=== PATIENT | female | born 2000 | race Caucasian/White ===

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

== ENCOUNTER 2022-05-12 15:43 | Emergency (ER) | payer OTHER ==
[2022-05-12 16:39] VITALS: RESP 16
--- NOTE | 2022-05-12 17:24 | XR ---
EXAMINATION TYPE: XR hand complete LT DATE OF EXAM: 05/12/2022 COMPARISON: NONE HISTORY: Wrist pain TECHNIQUE: 3 view FINDINGS: Metacarpals are intact. I see no fracture nor dislocation. Joint spaces are normal. Carpal bones are intact. IMPRESSION: No acute abnormality of the left hand.
--- NOTE | 2022-05-12 17:28 | XR ---
EXAMINATION TYPE: XR wrist complete LT DATE OF EXAM: 05/12/2022 COMPARISON: 06/26/2019 HISTORY: Pain TECHNIQUE: 4 views FINDINGS: Carpal bones are intact. I see no fracture nor dislocation. Joint spaces are normal. IMPRESSION: Negative left wrist exam. No change.
--- NOTE | 2022-05-12 19:41 | ED ---
General Adult HPI - General Chief complaint: Extremity Injury, Upper Stated complaint: lt wrist swollen/sores on chest Time Seen by Provider: 05/12/22 19:20 Source: patient Mode of arrival: ambulatory Limitations: no limitations - History of Present Illness Initial comments: Dictation was produced using [employer] dictation software. please excuse any grammatical, word or spelling errors. Chief Complaint: 22-year-old female presents with left breast rash and left wrist pain History of Present Illness: Patient is a 22-year-old female presents emergency department for left breast rash and left wrist pain. Patient states that she hurt her left wrist at work after a large object dropped on it. Patient also complaining of rash to the left breast. Patient states she completed a course of Augmentin however feels like her rash is not really improving. The ROS documented in this emergency department record has been reviewed and c onfirmed by me. Those systems with pertinent positive or negative responses have been documented in the HPI. All other systems are other negative and/or noncontributory. PHYSICAL EXAM: General Impression: Alert and oriented x3, not in acute distress HEENT: Normocephalic atraumatic, extra-ocular movements intact, pupils equal and reactive to light bilaterally, mucous membranes moist. Cardiovascular: Heart regular rate and rhythm Chest: Able to complete full sentences, no retractions, no tachypnea Abdomen: abdomen soft, non-tender, non-distended, no organomegaly Left upper extremity: There is palpatory tenderness to the surface of the left wrist and left hand without any appreciable swelling Musculoskeletal: Pulses present and equal in all extremities, no peripheral edema Motor: no focal deficits noted Neurological: CN II-XII grossly intact, no focal motor or sensory deficits noted Skin: Left breast there are 3 areas of dry scabs, no surrounding erythema, no drainage Psych: Normal affect and mood ED course: 22 y old female presents to the emergency department for rash and left breasts and left wrist pain. She suffered a contusion to the left wrist. X-rays of left wrist and hand are unremarkable. Left rash is dry and clean. Patient be trialed on a short course of Keflex antibiotics. - Related Data Previous Rx's Medication Instructions Recorded Ibuprofen [Motrin] 600 mg PO Q8HR PRN 7 Days #21 tab 03/08/18 Cephalexin [Keflex] 500 mg PO Q6HR 5 Days #20 cap 10/28/22 Allergies Allergy/AdvReac Type Severity Reaction Status Date / Time quetiapine [From Seroquel] Allergy Unknown Verified 05/12/22 16:39 Childhood Review of Systems ROS Statement: Those systems with pertinent positive or pertinent negative responses have been documented in the HPI. ROS Other: All systems not noted in ROS Statement are negative. Past Medical History Additional Past Medical History / Comment(s): hypoglycemic History of Any Multi-Drug Resistant Organisms: None Reported Past Surgical History: Ear Surgery Additional Past Surgical History / Comment(s): eye surgery Past Psychological History: ADD/ADHD, Bipolar Smoking Status: Never smoker Past Alcohol Use History: None Reported Past Drug Use History: None Reported General Exam Limitations: no limitations Course Vital Signs 05/12/22 16:35 Temperature 98 F Pulse Rate 78 Respiratory 16 Rate Blood Pressure 136/91 O2 Sat by Pulse 99 Oximetry Disposition Clinical Impression: Wrist contusion Disposition: HOME SELF-CARE Condition: Good Instructions (If sedation given, give patient instructions): Wrist Injury (ED), Acute Rash (ED) Prescriptions: Cephalexin [Keflex] 500 mg PO Q6HR 5 Days #20 cap Is patient prescribed a controlled substance at d/c from ED?: No Referrals: Katherine Hess MD [Primary Care Provider] - 1-2 days
[2022-05-12 20:01] VITALS: BP 130/79; PULSE 79; TEMP 98.9
== END 2022-05-12 20:01 | disposition home or self-care (01) ==
LOC: SUPCPDRO 15:43 → EC 15:43
DX: S60.212A Contusion of left wrist, initial encounter (principal); R21 Rash and other nonspecific skin eruption; F31.9 Bipolar disorder, unspecified; Z88.8 Allergy status to other drugs, medicaments and biological substances; Z79.899 Other long term (current) drug therapy
CPT/HCPCS: 99283

== ENCOUNTER 2022-06-26 16:07 | Inpatient (IN) | payer MEDICAID, OTHER ==
--- NOTE | 2022-06-26 20:02 | ED ---
Psych HPI - General Chief Complaint: Psychiatric Symptoms Stated Complaint: mental health Time Seen by Provider: 06/26/22 19:53 Source: patient Mode of arrival: ambulatory - History of Present Illness Initial Comments: Patient presents with psychiatric disorder. She was sent to the hospital by her psychiatrist. She has been having increasing frequency of hallucinations. She has had increased threatening self-harm behavior as well. Today she has not tried to harm herself. She has not overdosed on anything. She is not complaining of anything. - Related Data Previous Rx's Medication Instructions Recorded Ibuprofen [Motrin] 600 mg PO Q8HR PRN 7 Days #21 tab 03/08/18 Cephalexin [Keflex] 500 mg PO Q6HR 5 Days #20 cap 05/12/22 Allergies Allergy/AdvReac Type Severity Reaction Status Date / Time quetiapine [From Seroquel] Allergy Unknown Verified 06/26/22 16:11 Childhood Review of Systems ROS Statement: Those systems with pertinent positive or pertinent negative responses have been documented in the HPI. ROS Other: All systems not noted in ROS Statement are negative. Past Medical History Additional Past Medical History / Comment(s): hypoglycemic History of Any Multi-Drug Resistant Organisms: None Reported Past Surgical History: Ear Surgery, Orthopedic Surgery Additional Past Surgical History / Comment(s): eye surgery, foot surgery Past Psychological History: ADD/ADHD, Bipolar, PTSD Smoking Status: Never smoker Past Alcohol Use History: None Reported Past Drug Use History: None Reported General Exam Limitations: no limitations General appearance: alert, in no apparent distress Head exam: Present: atraumatic, normocephalic, normal inspection Eye exam: Present: normal appearance, PERRL, EOMI. Absent: scleral icterus, conjunctival injection, periorbital swelling ENT exam: Present: normal exam, mucous membranes moist Neck exam: Present: normal inspection. Absent: tenderness, meningismus, lymphadenopathy Respiratory exam: Present: normal lung sounds bilaterally. Absent: respiratory distress, wheezes, rales, rhonchi, stridor Cardiovascular Exam: Present: regular rate, normal rhythm, normal heart sounds. Absent: systolic murmur, diastolic murmur, rubs, gallop, clicks GI/Abdominal exam: Present: soft, normal bowel sounds. Absent: distended, tenderness, guarding, rebound, rigid Extremities exam: Present: normal inspection, full ROM, normal capillary refill. Absent: tenderness, pedal edema, joint swelling, calf tenderness Back exam: Present: normal inspection Neurological exam: Present: alert, oriented X3, CN II-XII intact Psychiatric exam: Present: normal affect, normal mood Skin exam: Present: warm, dry, intact, normal color. Absent: rash Course Vital Signs 06/26/22 16:08 Temperature 97.9 F Pulse Rate 114 H Respiratory 18 Rate Blood Pressure 121/82 O2 Sat by Pulse 99 Oximetry Medical Decision Making - Medical Decision Making patient presents for psychiatric evaluation. She is medically clear. She will require psychiatric evaluation. Disposition Clinical Impression: Acute psychosis Disposition: TRANSFER TO PSYCH HOSP/UNIT Condition: Fair Is patient prescribed a controlled substance at d/c from ED?: No Referrals: None,Stated [Primary Care Provider] - 1-2 days
[2022-06-26 21:11] LABS: Amphetamine Screen,Urine Not Detected (NotDetected); Barbiturate Screen,Urine Not Detected (NotDetected); Benzodiazepines Screen,Urine Not Detected (NotDetected); Cocaine Screen,Urine Not Detected (NotDetected); Methadone Screen, Urine Not Detected (NotDetected); Opiate Screen,Urine Not Detected (NotDetected); Oxycodone Screen, Urine Not Detected (NotDetected); Phencyclidine Screen,Urine Not Detected (NotDetected); Tricyclic Antidepressant,Urine Not Detected (NotDetected); Urn Cannabinoid Scrn Not Detected (NotDetected)
[2022-06-26] MEDS ORDERED: MAG HYDROX/AL HYDROX/SIMETH 355 ML BOTTLE PO PRN (23:19)
[2022-06-26] MEDS ORDERED: LORazepam 1 MG TAB PO PRN (23:19)
[2022-06-26] MEDS ORDERED: MAGNESIUM HYDROXIDE 2,400 MG/10 ML CUP PO PRN (23:19)
[2022-06-26] MEDS ORDERED: LORazepam 2 MG/ML INJ IM PRN (23:22)
[2022-06-26 23:56] LABS: Appearance,Urine Turbid (Clear); Bacteria,Urine Moderate /hpf; Bilirubin,Urine Negative (Negative); Blood,Urine Negative (Negative); Color,Urine Yellow; Glucose,Urine (UA) Negative (Negative); Ketones,Urine Negative (Negative); Leukocyte Esterase,Urine Large (Negative); Mucus,Urine Moderate /hpf; Nitrite,Urine Negative (Negative); Protein,Urine 1+ (Negative); RBC,Urine 1 /hpf (0-5); Specific Gravity,Urine 1.031 (1.001-1.035); Squamous Epithelial Cell,Urine 57 /hpf (0-4); Transitional Epi Cells,Urine 1 /hpf (0-1); WBC,Urine 137 /hpf (0-5)
[2022-06-27] MEDS: ACETAMINOPHEN TAB 325 MG TAB PO PRN (00:11)
[2022-06-27 07:45] LABS: Basophils % (A) 0 %; Eosinophils # (A) 0.3 k/uL (0-0.7); Eosinophils % (A) 3 %; HCT 43.7 % (34.0-46.0); HGB 15.3 gm/dL (11.4-16.0); Lymphocytes # (A) 2.8 k/uL (1.0-4.8); Lymphocytes % (A) 31 %; MCH 32.6 pg (25.0-35.0); MCHC 34.9 g/dL (31.0-37.0); MCV 93.4 fL (80.0-100.0); Mean Platelet Volume 7.9; Monocytes % (A) 11 %; Neutrophils # (A) 4.7 k/uL (1.3-7.7); Neutrophils % (A) 53 %; Platelet Count 206 k/uL (150-450); RBC 4.68 m/uL (3.80-5.40)
[2022-06-27 08:04] LABS: ALT 31 U/L (4-34); AST 31 U/L (14-36); African American GFR (CKD) >90 (>60 ml/min/1.73 sqM); Albumin 4.2 g/dL (3.5-5.0); Alkaline Phosphatase 80 U/L (38-126); Anion Gap 11 mmol/L; Blood Urea Nitrogen 8 mg/dL (7-17); Calcium 8.8 mg/dL (8.4-10.2); Carbon Dioxide 23 mmol/L (22-30); Chloride 109 mmol/L (98-107); Glucose 92 mg/dL (74-99); Non-African American GFR(CKD) >90 (>60 ml/min/1.73 sqM); Sodium 143 mmol/L (137-145); Total Bilirubin 0.6 mg/dL (0.2-1.3); Total Protein 6.8 g/dL (6.3-8.2)
[2022-06-27] MEDS: DIVALPROEX 500 MG TABLET.DR PO SCH ×4 (08:35→20:15)
--- NOTE | 2022-06-27 14:06 | P.HP ---
Psychiatric H&P - . H&P Date: 06/27/22 History & Physical: Allergies Allergy/AdvReac Type Severity Reaction Status Date / Time quetiapine From Seroquel Allergy Unknown Verified 06/26/22 16:11 Childhood Vital Signs Temp 98.2 F 06/27/22 00:10 Pulse 110 H 06/27/22 00:10 Resp 17 06/27/22 00:10 BP 140/72 06/27/22 00:10 Pulse Ox 97 06/27/22 00:10 FiO2 Intake & Output 06/26/22 06/27/22 06/27/22 18:59 06:59 18:59 Weight 112.037 kg 110.28 kg Laboratory Last Values WBC 9.0 k/uL (4.0-11.0) 06/27/22 06:56 RBC 4.68 m/uL (3.80-5.40) 06/27/22 06:56 Hgb 15.3 gm/dL (11.4-16.0) 06/27/22 06:56 Hct 43.7 % (34.0-46.0) 06/27/22 06:56 MCV 93.4 fL (80.0-100.0) 06/27/22 06:56 MCH 32.6 pg (25.0-35.0) 06/27/22 06:56 MCHC 34.9 g/dL (31.0-37.0) 06/27/22 06:56 RDW 12.0 % (11.5-15.5) 06/27/22 06:56 Plt Count 206 k/uL (150-450) 06/27/22 06:56 MPV 7.9 06/27/22 06:56 Neutrophils % 53 % 06/27/22 06:56 Lymphocytes % 31 % 06/27/22 06:56 Monocytes % 11 % 06/27/22 06:56 Eosinophils % 3 % 06/27/22 06:56 Basophils % 0 % 06/27/22 06:56 Neutrophils # 4.7 k/uL (1.3-7.7) 06/27/22 06:56 Lymphocytes # 2.8 k/uL (1.0-4.8) 06/27/22 06:56 Monocytes # 1.0 k/uL (0-1.0) 06/27/22 06:56 Eosinophils # 0.3 k/uL (0-0.7) 06/27/22 06:56 Basophils # 0.0 k/uL (0-0.2) 06/27/22 06:56 Sodium 143 mmol/L (137-145) 06/27/22 06:56 Potassium 4.0 mmol/L (3.5-5.1) 06/27/22 06:56 Chloride 109 mmol/L (98-107) H 06/27/22 06:56 Carbon Dioxide 23 mmol/L (22-30) 06/27/22 06:56 Anion Gap 11 mmol/L 06/27/22 06:56 BUN 8 mg/dL (7-17) 06/27/22 06:56 Creatinine 0.64 mg/dL (0.52-1.04) 06/27/22 06:56 Est GFR (CKD-EPI)AfAm >90 (>60 ml/min/1.73 sqM) 06/27/22 06:56 Est GFR (CKD-EPI)NonAf >90 (>60 ml/min/1.73 sqM) 06/27/22 06:56 Glucose 92 mg/dL (74-99) 06/27/22 06:56 Calcium 8.8 mg/dL (8.4-10.2) 06/27/22 06:56 Total Bilirubin 0.6 mg/dL (0.2-1.3) 06/27/22 06:56 AST 31 U/L (14-36) 06/27/22 06:56 ALT 31 U/L (4-34) 06/27/22 06:56 Alkaline Phosphatase 80 U/L (38-126) 06/27/22 06:56 Total Protein 6.8 g/dL (6.3-8.2) 06/27/22 06:56 Albumin 4.2 g/dL (3.5-5.0) 06/27/22 06:56 TSH 6.350 mIU/L (0.465-4.680) H 06/27/22 06:56 Urine Color Yellow 06/26/22 20:32 Urine Appearance Turbid (Clear) H 06/26/22 20:32 Urine pH 6.0 (5.0-8.0) 06/26/22 20:[address] 1.031 (1.001-1.035) 06/26/22 20:32 Urine Protein 1+ (Negative) H 06/26/22 20:32 Urine Glucose (UA) Negative (Negative) 06/26/22 20:32 Urine Ketones Negative (Negative) 06/26/22 20:32 Urine Blood Negative (Negative) 06/26/22 20:32 Urine Nitrite Negative (Negative) 06/26/22 20:32 Urine Bilirubin Negative (Negative) 06/26/22 20:32 Urine Urobilinogen 4.0 mg/dL (<2.0) 06/26/22 20:32 Ur Leukocyte Esterase Large (Negative) H 06/26/22 20:32 Urine RBC 1 /hpf (0-5) 06/26/22 20:32 Urine WBC 137 /hpf (0-5) H 06/26/22 20:32 Ur Squamous Epith Cells 57 /hpf (0-4) H 06/26/22 20:32 Ur Transition Epith Cell 1 /hpf (0-1) 06/26/22 20:32 Urine Bacteria Moderate /hpf (None) H 06/26/22 20:32 Urine Mucus Moderate /hpf (None) H 06/26/22 20:32 Urine HCG, Qual Not Detected (Not Detectd) 06/26/22 20:32 Urine Opiates Screen Not Detected (NotDetected) 06/26/22 20:32 Ur Oxycodone Screen Not Detected (NotDetected) 06/26/22 20:32 Urine Methadone Screen Not Detected (NotDetected) 06/26/22 20:32 Ur Propoxyphene Screen Not Detected (NotDetected) 06/26/22 20:32 Ur Barbiturates Screen Not Detected (NotDetected) 06/26/22 20:32 U Tricyclic Antidepress Not Detected (NotDetected) 06/26/22 20:32 Ur Phencyclidine Scrn Not Detected (NotDetected) 06/26/22 20:32 Ur Amphetamines Screen Not Detected (NotDetected) 06/26/22 20:32 U Methamphetamines Scrn Not Detected (NotDetected) 06/26/22 20:32 U Benzodiazepines Scrn Not Detected (NotDetected) 06/26/22 20:32 Urine Cocaine Screen Not Detected (NotDetected) 06/26/22 20:32 U Marijuana (THC) Screen Not Detected (NotDetected) 06/26/22 20:32 Serum Alcohol <10 mg/dL 06/26/22 20:44 Coronavirus (PCR) Not Detected (Not Detectd) 06/26/22 22:37 06/27/22 13:51 IDENTIFYING DATA: Patient is a 22 yo female , mother is her willy, lives with her mother and grandfather, collects SS. HPI: Patient presented to the hospital yesterday due to increasing hallucinations as advised by her outpatient psychiatrist. Patient signed voluntary before coming to the MHU. She was insistent on seeing real estate underwriter today. She appears to have intellectual disability, was concrete and minimizing her symptoms, focused on discharge. Patient was preoccupied with discharge and states that "they took away my coping mechanism". She appears to have poor insight and judgment. she claims that she missed a few doses of her medications at home and states that it was due to "my hand eye coordination". She states that the doctor wanted her to have her "meds checked". Patient was rationalizing why she is in the hospital and states that she also may have been "dropping my meds". She claims at home she was "banging on the table" and states that she did not harm anybody. She claims that she was hearing voices stating "I love you" and also claims that she was having visual hallucinations of a family member. She states that at this time she is not having these hallucinations. She is denying any paranoia. She claims that her appetite is fair and sleep has been fairly poor. Patient denies any suicidal or homicidal ideations intent or plan. Patient denies any flight of ideas racing thoughts and increased in goal directed behavior. Patient admits to using no recreational drugs or cigarettes. PAST PSYCHIATRIC HISTORY: Patient states that she has a history of bipolar disorder and also has a noted history of PTSD and intellectual disability. Patient is currently on Abilify, Depakote, lithium, prazosin and Zyprexa. Patient denies any previous psychiatric hospitalizations. Patient currently follows up with Dr. Solano at [facility], her last visit was on 06/26/2022. Patient denies any history of suicide attempts in the past. PMH:Additional Past Medical History / Comment(s): hypoglycemic History of Any Multi-Drug Resistant Organisms: None Reported Past Surgical History: Ear Surgery, Orthopedic Surgery Additional Past Surgical History / Comment(s): eye surgery, foot surgery Past Psychological History: ADD/ADHD, Bipolar, PTSD Smoking Status: Never smoker Past Alcohol Use History: None Reported Past Drug Use History: None Reported ALLERGIES: as per EMR CHEMICAL DEPENDENCY HISTORY: as per HPI FAMILY PSYCHIATRIC/SUBSTANCE USE HISTORY: She claims that her uncle and had bipolar disorder SOCIAL HISTORY: Patient was born and raised in [place] and also in [place]. She claims that she got to age [age] years old and was enrolled in special classes during high school. She denies any legal history. She lives at home with her mother and her grandfather, her mother is her guardian. They live in a house. She collects Social Security. MENTAL STATUS EXAM: General Appearance: Patient appears to be overweight, short hair, wearing glasses, stated age is alert, concrete, difficult to redirect. Patient appears to have poor hygiene and grooming. Behavior: Patient is seated without any agitated behavior. Tearful and argumentative. Focused on discharge. Speech: Patient's speech is fluent and nonpressured. [place] and monotone. Mood/Affect: Patient reports their mood is "okay", affect is incongruent and tearful at times. Suicidality/Homicidality: Patient denies having any homicidal ideation intent or plan. Denies any suicidal ideations intent or plan Perceptions: Patient denies any visual hallucinations and denies any auditory hallucinations Though content/process: [place], positive content. Minimizing her symptoms. Rationalizing. Focused on discharge. Memory and concentration: AOX3, grossly intact for the purposes of this session. Can spell "WORLD" backwards Judgment and insight: Limited STRENGTHS/WEAKNESSES: strength is that patient is resilient. Weakness is that patient has poor judgment and is impulsive and has been noncompliant with medications. INTELLECT: below average IMPRESSIONS: Bipolar disorder unspecified Intellectual disability PTSD PLAN: -Patient is admitted under voluntary status to MHU for stabilization of psychiatric symptoms and safety. Patient has not signed medication consent] and is placed in patient's chart. -Medications : Will start patient on her home dose of Abilify 20 mg daily for mood stabilization, Depakote 500 mg daily +1000 mg qhs for mood stabilization, lithium 600 mg daily at bedtime for mood stabilization, Zyprexa 20 mg daily at bedtime for sleep/mood stabilization/psychosis. real estate underwriter will attempt again to offer patient FUNEZ abilify to ensure compliance. -Ativan and Haldol PRN for agitation/aggression -will order lithium level tomorrow morning. -Patient was informed of the risks, benefits and side effects of the medication -Internal Medicine consult to perform medical evaluation and physical. -NRT - not needed as patient does not smoke. -SW on board for discharge planning. Encourage patient to participate in groups to work on coping skills. will get further collateral from sarahdian/mother.
[2022-06-27] MEDS: LITHIUM CARBONATE 300 MG CAP PO SCH (20:12)
[2022-06-27] MEDS: OLANZapine 10 MG TAB PO SCH (20:13)
[2022-06-27] MEDS: PRAZOSIN 1 MG CAP PO SCH (20:13)
--- NOTE | 2022-06-28 01:20 | P.MDCNMH ---
History of Present Illness H&P Date: 06/28/22 Chief Complaint: medical eval 22 year old female with developmental delays patient sent in here for psych eval and meds adjustment , due to acute psychosis , anger behavior and auditory hallucinations she currently denies any medical concerns , denies fever chills, URI , abd pain , nausea or vomiting, denies any urinary or bowel habit changes Review of Systems Pertinent positives as noted in HPI. All other systems were reviewed and are negative Past Medical History Additional Past Medical History / Comment(s): hypoglycemic History of Any Multi-Drug Resistant Organisms: None Reported Past Surgical History: Ear Surgery, Orthopedic Surgery Additional Past Surgical History / Comment(s): eye surgery, foot surgery Past Psychological History: ADD/ADHD, Bipolar, PTSD Smoking Status: Never smoker Past Alcohol Use History: None Reported Past Drug Use History: None Reported - Past Family History familyi Additional Family Medical History / Comment(s): skin cancer Medications and Allergies Home Medications Medication Instructions Recorded Confirmed Type ARIPiprazole [Abilify] 20 mg PO DAILY 06/26/22 06/26/22 History Divalproex Sodium [Depakote] 1,000 mg PO HS 06/26/22 06/26/22 History Divalproex Sodium [Depakote] 500 mg PO DAILY 06/26/22 06/26/22 History [place] Carbonate [Lithobid] 600 mg PO HS 06/26/22 06/26/22 History OLANZapine [ZyPREXA] 20 mg PO HS 06/26/22 06/26/22 History Prazosin [Minipress] 1 mg PO HS 06/26/22 06/26/22 History Allergies Allergy/AdvReac Type Severity Reaction Status Date / Time quetiapine [From Seroquel] Allergy Unknown Verified 06/26/22 16:11 Childhood Physical Exam Constitutional: No acute distress Eyes: Anicteric sclerae, moist conjunctiva, Pupils equal round reactive to light ENMT: NC/AT Oropharynx clear, no erythema, or exudates Neck: Supple, no masses, or JVD No carotid bruits No thyromegaly Lungs: Clear to auscultation Clear to percussion Normal respiratory effort, no accessory muscle use Cardiovascular: Heart regular in rate and rhythm, No murmurs, gallops, or rubs No peripheral edema Abdominal: Soft Nontender, no guarding, rebound or rigidity Abdomen moving with respiration Normoactive bowel sounds Skin: Normal temperature, tone, texture, turgor Extremities: No digital cyanosis No clubbing Pedal pulses intact and symmetrical Radial pulses intact and symmetrical No calf tenderness Psychiatric: Alert and oriented to person, place Neuro Muscles Strength 5/5 in all 4 extremities Sensation to light touch grossly present throughout Cranial Nerve Examination - Cranial Nerves Cranial Nerve II- Optic: Intact Cranial Nerve III- Oculomotor: Intact Cranial Nerve IV- Trochlear: Intact Cranial Nerve V- Trigeminal: Intact Cranial Nerve - Abducens: Intact Cranial Nerve VII- Facial: Intact Cranial Nerve VIII- Auditory: Intact Cranial Nerve IX- Glossopharyngeal: Intact Cranial Nerve X- Vagus: Intact Cranial Nerve XI- Accessory: Intact Cranial Nerve XII- Hypoglossal: Intact Results CBC & Chem 7: 06/27/22 06:56 06/27/22 06:56 Labs: Abnormal Lab Results - Last 24 Hours (Table) 06/27/22 Range/Units 06:56 Chloride 109 H (98-107) mmol/L TSH 6.350 H (0.465-4.680) mIU/L Assessment and Plan Assessment: Elevated TSH rule out hypothyroidism check free T4 acute psychosis management per psych obesity counseled regarding life style modification and weight loss thank you for your consultation , please contact [facility] when free T4 RESULTS
[2022-06-28 10:59] LABS: Lithium 0.3 mmol/L
[2022-06-28] MEDS ORDERED: ARIPiprazole IM 400 MG VIAL (NO COST) PHARMACY STOCK IM ONE (11:00)
[2022-06-28] MEDS ORDERED: ARIPiprazole IM SYRINGE 400 MG (NO CHARGE) PHARMACY STOCK IM ONE (11:00)
[2022-06-28 11:19] LABS: T4, Free (Free Thyroxine) 1.11 ng/dL (0.78-2.19)
--- NOTE | 2022-06-28 11:25 | P.PN ---
Progress Note - Text Progress Note Date: 06/28/22 Interval History: Patient was seen wandering the hallways and was directable and agreeable to sp eak with software writer in the office. Patient was fairly insistent on speaking with software writer today. She claims that she feels a bit better today with regards to her mood and was less tearful and more cooperative during the conversation. She admits to taking her medications and denies any issues with it. She states that she spoke with her mother yesterday and wants to be on the long-acting injection. We spoke of its advantages and also the risks as well and patient was agreeable to it. She states that she was able to sleep a bit better last night in the hospital. Continues to be fairly focused on discharge. She states that she is going to some groups. Claims have a fair appetite. States that she will shower today. At this time patient denies any suicidal or homical ideations, intent or plan. Patient denies any auditory, visual hallucinations and denies any paranoia or delusions. Patient denies any side effects from the medications and has been compliant with meds. Mental Status Exam: General Appearance: Patient appears to be overweight, short hair, wearing glasses, stated age is alert, concrete, or directable today. Patient appears to have poor hygiene and grooming. Behavior: Patient is seated without any agitated behavior. On directable. Focused on discharge. Speech: Patient's speech is fluent and nonpressured. [place] and monotone. Mood/Affect: Patient reports their mood is "a bit better", affect is incongruent Suicidality/Homicidality: Patient denies having any homicidal ideation intent or plan. Denies any suicidal ideations intent or plan Perceptions: Patient denies any visual hallucinations and denies any auditory hallucinations Though content/process: [place], poverty of content. Minimizing her symptoms. Focused on discharge. Memory and concentration: AOX3, grossly intact for the purposes of this session Judgment and insight: Limited, improviding mildly IMPRESSIONS: Bipolar disorder unspecified Intellectual disability PTSD Plan: -Patient continues to meet criteria for inpatient psychiatric admission for symptom stabilization and safety. Patient has not signed medication consent and was placed in patient's chart. -Medications: Abilify 20 mg daily for mood stabilization, ordered Abilify Maint[place] 400 mg IM today to help with compliance. Depakote 500 mg daily +1000 mg qhs for mood stabilization, lithium 600 mg daily at bedtime for mood st abilization, Zyprexa 20 mg daily at bedtime for sleep/mood stabilization/psychosis. -[place] level on 06/28 - 0.3 -When necessary Ativan and Haldol for agitation/aggression. -NRT -not needed as patient does not smoke -SW on board for discharge planning. Encouraged the patient to participate in milieu. likely discharge sunday as patient is being transitioned onto FUNEZ.
[2022-06-28] MEDS: DIVALPROEX 500 MG TABLET.DR PO SCH ×2 (11:32→20:11)
[2022-06-28] MEDS: OLANZapine 10 MG TAB PO SCH (20:11)
[2022-06-28] MEDS: LITHIUM CARBONATE 300 MG CAP PO SCH (20:11)
[2022-06-28] MEDS: PRAZOSIN 1 MG CAP PO SCH (20:12)
[2022-06-28] MEDS: ACETAMINOPHEN TAB 325 MG TAB PO PRN (21:00)
[2022-06-29 08:25] VITALS: BP 152/65
[2022-06-29] MEDS: DIVALPROEX 500 MG TABLET.DR PO SCH ×2 (08:25→20:16)
--- NOTE | 2022-06-29 10:37 | P.PN ---
Progress Note - Text Progress Note Date: 06/29/22 Interval History: Patient was seen wandering the hallways and was directable and agreeable to tashi segura with typewriter tester in the office. Patient continues to be focused on discharge and minimizing some of her symptoms. She claims that she tolerated the long-acting injection well yesterday and denies any complaints today. She claims that her mother came to visit her last night and states that "my mom wants her to come back home". She continues to be concrete and childlike in behavior which appears to be more chronic. We spoke about the transition onto the long-acting injection and the need for monitoring before discharge and patient seemed to have limited understanding of this and continues to argue about discharge. She claims that she is going to some groups however was not able to verbalize what she is learning. Denies any depression or anxiety at this time. She states that she was able to sleep a bit better last night. Claims have a fair appetite. At this time patient denies any suicidal or homical ideations, intent or plan. Patient denies any auditory, visual hallucinations and denies any paranoia or delusions. Patient denies any side effects from the medications and has been compliant with meds. Mental Status Exam: General Appearance: Patient appears to be overweight, short hair, wearing glasses, stated age is alert, concrete, more directable today. Patient appears to have improving hygiene and grooming. Behavior: Patient is seated without any agitated behavior. more directable. Focused on discharge. Speech: Patient's speech is fluent and nonpressured. [place] and monotone. Mood/Affect: Patient reports their mood is "better", affect is incongruent Suicidality/Homicidality: Patient denies having any homicidal ideation intent or plan. Denies any suicidal ideations intent or plan Perceptions: Patient denies any visual hallucinations and denies any auditory hallucinations Though content/process: [place], poverty of content. Minimizing her symptoms. Focused on discharge. Memory and concentration: AOX3, grossly intact for the purposes of this session Judgment and insight: Limited, improving mildly IMPRESSIONS: Bipolar disorder unspecified Intellectual disability PTSD Plan: -Patient continues to meet criteria for inpatient psychiatric admission for symptom stabilization and safety. Patient has not signed medication consent and was placed in patient's chart. -Medications: Abilify 20 mg daily for mood stabilization, given Abilify Maintenna 400 mg IM given on 12/15 to help with compliance issues, next dose to be given 07/26/2022. Depakote 500 mg daily +1000 mg qhs for mood stabilization, lithium 600 mg daily at bedtime for mood stabilization, Zyprexa 20 mg daily at bedtime for sleep/mood stabilization/psychosis. -[place] level on 06/28 - 0.3 -When necessary Ativan and Haldol for agitation/aggression. -NRT -not needed as patient does not smoke -SW on board for discharge planning. Encouraged the patient to participate in milieu. likely discharge tomorrow back home as patient is being transitioned onto FUNEZ.
[2022-06-29] MEDS: OLANZapine 10 MG TAB PO SCH (20:15)
[2022-06-29] MEDS: LITHIUM CARBONATE 300 MG CAP PO SCH (20:15)
[2022-06-29] MEDS: PRAZOSIN 1 MG CAP PO SCH (20:16)
[2022-06-30 06:47] VITALS: PULSE 70; RESP 18; TEMP 98.2
[2022-06-30] MEDS: DIVALPROEX 500 MG TABLET.DR PO SCH (08:51)
--- NOTE | 2022-06-30 10:38 | P.DS ---
Providers Date of admission: 06/26/22 23:15 Expected date of discharge: 06/30/22 Attending physician: Damian Chapman MD Consults: 06/26/22 23:19 Consult Physician Routine Consulting Provider: Rashid Quiroga Consult Reason/Comments: H&P Do you want consulting provider notified?: Yes Primary care physician: Stated None - Discharge Diagnosis(es) (1) Bipolar disorder, unspecified Current Visit: Yes Status: Acute Priority: High (2) Intellectual disability Current Visit: Yes Status: Acute Priority: High (3) PTSD (post-traumatic stress disorder) Current Visit: Yes Status: Acute Priority: Low Hospital Course: Admission HPI: Admission note was completed by service writer "Patient is a 22 yo female , mother is her sarahdian, lives with her mother and grandfather, collects SS. Patient presented to the hospital yesterday due to increasing hallucinations as advised by her outpatient psychiatrist. Patient signed voluntary before coming to the [facility]HU. She was insistent on seeing service writer today. She appears to have intellectual disability, was concrete and minimizing her symptoms, focused on discharge. Patient was preoccupied with discharge and states that "they took away my coping mechanism". She appears to have poor insight and judgment. she claims that she missed a few doses of her medications at home and states that it was due to "my hand eye coordination". She states that the doctor wanted her to have her "meds checked". Patient was rationalizing why she is in the hospital and states that she also may have been "dropping my meds". She claims at home she was "banging on the table" and states that she did not harm anybody. She claims that she was hearing voices stating "I love you" and also claims that she was having visual hallucinations of a family member. She states that at this time she is not having these hallucinations. She is denying any paranoia. She claims that her appetite is fair and sleep has been fairly poor. Patient denies any suicidal or homicidal ideations intent or plan. Patient denies any flight of ideas racing thoughts and increased in goal directed behavior. Patient admits to using no recreational drugs or cigarettes." Hospital course: Upon admission to the unit patient was directable and agreeable to commence t reatment and signed adult voluntary form . Patient got along well with other patients on the unit and followed unit protocol. Patient was compliant with the medications and denied any side effects throughout hospital course. Patient was started on her home dose of Abilify 20 mg daily by mouth for mood stabilization, patient was agreeable to take Abilify MaintennA 400 MG IM on 06/28 and will be d ue next dose on 07/26/2022. Patient was also restarted back on her Depakote 500 mg daily +1000 mg daily at bedtime for mood stabilization, lithium 600 mg daily at bedtime for stabilization, resumed back on Zyprexa 20 mg daily at bedtime for sleep/mood stabilization/psychosis. Patient had a lithium level drawn on 06/28 which was 0.3. Patient spoke of her stressors and engaged in therapy both group and individual. Patient was also seen by medical team for history and physical exam. Throughout the course of the hospitalization patient gradually improved with regards to mood, anxiety, lability, sleep and returned back to their baseline level of functioning. On the day of discharge patient denied any suicidal or homicidal ideations intent or plan denied any auditory or visual hallucinations. Patient endorsed wanting to live for her health and her family. The patient denied any access to guns or weapons. Patient denied any paranoia and did not endorse any delusions. Patient does not have a significant history of substance abuse and was counseled on abstaining from all substances including alcohol and marijuana. Patient was also counseled on the medications and need for regular compliance and was encouraged to follow-up with their outpatient appointment for mental health and also for primary care. Prior to discharge a family meeting will be arranged by social science teacher to answer any questions and ensure safety upon discharge. Patient will be continuing to follow-up at [facility] with her outpatient psychiatrist. Mental status exam: General Appearance: Patient appears to be overweight, wearing glasses, short hair, stated age is alert, pleasant, and cooperative. Patient is in no acute distress and has improved hygiene and grooming Behavior: Patient is calmly seated without any agitated behavior. Speech: Patient's speech is fluent and nonpressured. [place]. Mood/Affect: Patient reports their mood is "good", affect is congruent and constricted Suicidality/Homicidality: Patient denies having any suicidal or homicidal ideation intent or plan. Perceptions: Patient denies any auditory or visual hallucinations. Though content/process: There is no evidence of any delusional thought content and thought process is linear and goal-directed. [place] Memory and concentration: AOX3, grossly intact for the purposes of this session. Can spell "WORLD" backwards correctly. Judgment and insight: Chronically limited, improved with guarded prognosis Impression: Bipolar disorder unspecified Intellectual disability PTSD Plan: -Continue with discharge today as patient has improved and stabilized psychiatrically and is not currently an imminent threat to herself and/or others. Patient will remain at chronically elevated risk for harm to self and/or others due to her impulsivity and chronically limited insight and judgment. -Continue medications: Continue with Abilify by mouth 20 mg daily for mood stabilization for 12 more days then discontinue. Patient received Abilify Maintenna 400 mg IM given on 06/28 and next dose to be given on 07/26/2022. Depakote 500 mg daily +1000 mg daily at bedtime for mood stabilization, lithium 600 mg daily at bedtime for mood stabilization, Zyprexa 20 mg daily at bedtime for sleep/mood stabilization. -Patient was counseled on the need for medication compliance and appropriate follow-up at mental health and also primary care for medical issues. Patient verbalized understanding and agreed. -Social work to arrange for and conduct family meeting to ensure safety upon discharge and answer any questions/concerns. Social work also to arrange for patients follow up appointments with [facility] for psychiatric care along with follow up with primary care provider. -Patient counseled on abstaining from recreational drugs and marijuana and alcohol. Was informed/educated on the adverse effects on their physical and mental health. Patient verbally agreed and understood. -Patient was instructed to return to the hospital or seek immediate medical care if their psychiatric or medical symptoms do worsen or reoccur. Allergies Allergy/AdvReac Type Severity Reaction Status Date / Time quetiapine [From Seroquel] Allergy Unknown Verified 06/26/22 16:11 Childhood Laboratory Results WBC 9.0 k/uL (4.0-11.0) 06/27/22 06:56 RBC 4.68 m/uL (3.80-5.40) 06/27/22 06:56 Hgb 15.3 gm/dL (11.4-16.0) 06/27/22 06:56 Hct 43.7 % (34.0-46.0) 06/27/22 06:56 MCV 93.4 fL (80.0-100.0) 06/27/22 06:56 MCH 32.6 pg (25.0-35.0) 06/27/22 06:56 MCHC 34.9 g/dL (31.0-37.0) 06/27/22 06:56 RDW 12.0 % (11.5-15.5) 06/27/22 06:56 Plt Count 206 k/uL (150-450) 06/27/22 06:56 MPV 7.9 06/27/22 06:56 Neutrophils % 53 % 06/27/22 06:56 Lymphocytes % 31 % 06/27/22 06:56 Monocytes % 11 % 06/27/22 06:56 Eosinophils % 3 % 06/27/22 06:56 Basophils % 0 % 06/27/22 06:56 Neutrophils # 4.7 k/uL (1.3-7.7) 06/27/22 06:56 Lymphocytes # 2.8 k/uL (1.0-4.8) 06/27/22 06:56 Monocytes # 1.0 k/uL (0-1.0) 06/27/22 06:56 Eosinophils # 0.3 k/uL (0-0.7) 06/27/22 06:56 Basophils # 0.0 k/uL (0-0.2) 06/27/22 06:56 Sodium 143 mmol/L (137-145) 06/27/22 06:56 Potassium 4.0 mmol/L (3.5-5.1) 06/27/22 06:56 Chloride 109 mmol/L (98-107) H 06/27/22 06:56 Carbon Dioxide 23 mmol/L (22-30) 06/27/22 06:56 Anion Gap 11 mmol/L 06/27/22 06:56 BUN 8 mg/dL (7-17) 06/27/22 06:56 Creatinine 0.64 mg/dL (0.52-1.04) 06/27/22 06:56 Est GFR (CKD-EPI)AfAm >90 (>60 ml/min/1.73 sqM) 06/27/22 06:56 Est GFR (CKD-EPI)NonAf >90 (>60 ml/min/1.73 sqM) 06/27/22 06:56 Glucose 92 mg/dL (74-99) 06/27/22 06:[address] Glu mg/dL 99 06/27/22 06:56 Hemoglobin A1c 5.1 % (0.0-6.0) 06/27/22 06:56 Calcium 8.8 mg/dL (8.4-10.2) 06/27/22 06:56 Total Bilirubin 0.6 mg/dL (0.2-1.3) 06/27/22 06:56 AST 31 U/L (14-36) 06/27/22 06:56 ALT 31 U/L (4-34) 06/27/22 06:56 Alkaline Phosphatase 80 U/L (38-126) 06/27/22 06:56 Total Protein 6.8 g/dL (6.3-8.2) 06/27/22 06:56 Albumin 4.2 g/dL (3.5-5.0) 06/27/22 06:56 TSH 6.350 mIU/L (0.465-4.680) H 06/27/22 06:56 Free T4 1.11 ng/dL (0.78-2.19) 06/28/22 09:30 Urine Color Yellow 06/26/22 20:32 Urine Appearance Turbid (Clear) H 06/26/22 20:32 Urine pH 6.0 (5.0-8.0) 06/26/22 20:32 Ur Specific Ray 1.031 (1.001-1.035) 06/26/22 20:32 Urine Protein 1+ (Negative) H 06/26/22 20:32 Urine Glucose (UA) Negative (Negative) 06/26/22 20:32 Urine Ketones Negative (Negative) 06/26/22 20:32 Urine Blood Negative (Negative) 06/26/22 20:32 Urine Nitrite Negative (Negative) 06/26/22 20:32 Urine Bilirubin Negative (Negative) 06/26/22 20:32 Urine Urobilinogen 4.0 mg/dL (<2.0) 06/26/22 20:32 Ur Leukocyte Esterase Large (Negative) H 06/26/22 20:32 Urine RBC 1 /hpf (0-5) 06/26/22 20:32 Urine WBC 137 /hpf (0-5) H 06/26/22 20:32 Ur Squamous Epith Cells 57 /hpf (0-4) H 06/26/22 20:32 Ur Transition Epith Cell 1 /hpf (0-1) 06/26/22 20:32 Urine Bacteria Moderate /hpf (None) H 06/26/22 20:32 Urine Mucus Moderate /hpf (None) H 06/26/22 20:32 Urine HCG, Qual Not Detected (Not Detectd) 06/26/22 20:32 Urine Opiates Screen Not Detected (NotDetected) 06/26/22 20:32 Ur Oxycodone Screen Not Detected (NotDetected) 06/26/22 20:32 Urine Methadone Screen Not Detected (NotDetected) 06/26/22 20:32 Ur Propoxyphene Screen Not Detected (NotDetected) 06/26/22 20:32 Ur Barbiturates Screen Not Detected (NotDetected) 06/26/22 20:32 U Tricyclic Antidepress Not Detected (NotDetected) 06/26/22 20:32 Ur Phencyclidine Scrn Not Detected (NotDetected) 06/26/22 20:32 Ur Amphetamines Screen Not Detected (NotDetected) 06/26/22 20:32 U Methamphetamines Scrn Not Detected (NotDetected) 06/26/22 20:32 U Benzodiazepines Scrn Not Detected (NotDetected) 06/26/22 20:32 [place] 0.3 mmol/L 06/28/22 09:30 Urine Cocaine Screen Not Detected (NotDetected) 06/26/22 20:32 U Marijuana (THC) Screen Not Detected (NotDetected) 06/26/22 20:32 Serum Alcohol <10 mg/dL 06/26/22 20:44 Coronavirus (PCR) Not Detected (Not Detectd) 06/26/22 22:37 Vital Signs Temp 98.2 F 06/30/22 06:46 Pulse 70 06/30/22 06:46 Resp 18 06/30/22 06:46 BP 152/65 06/29/22 08:24 Pulse Ox 98 06/30/22 06:46 FiO2 Patient Condition at Discharge: Stable Plan - Discharge Summary Discharge Rx Participant: No New Discharge Prescriptions: New ARIPiprazole IM [Abiliflenard Maintena] 400 mg IM QMONTHLY #1 each Continue ARIPiprazole [Abilify] 20 mg PO DAILY 12 Days tab Divalproex Sodium [Depakote] 1,000 mg PO HS 30 Days tab Prazosin [Minipress] 1 mg PO HS 30 Days cap OLANZapine [ZyPREXA] 20 mg PO HS 30 Days tab Divalproex Sodium [Depakote] 500 mg PO DAILY 30 Days tab [place] Carbonate [Lithobid] 600 mg PO HS 30 Days tab Discharge Medication List ARIPiprazole IM [Abilify Maintena] 400 mg IM QMONTHLY #1 each 06/30/22 [Rx] ARIPiprazole [Abilify] 20 mg PO DAILY 12 Days tab 06/30/22 [Rx] Divalproex Sodium [Depakote] 1,000 mg PO HS 30 Days tab 06/30/22 [Rx] Divalproex Sodium [Depakote] 500 mg PO DAILY 30 Days tab 06/30/22 [Rx] [place] Carbonate [Lithobid] 600 mg PO HS 30 Days tab 06/30/22 [Rx] OLANZapine [ZyPREXA] 20 mg PO HS 30 Days tab 06/30/22 [Rx] Prazosin [Minipress] 1 mg PO HS 30 Days cap 06/30/22 [Rx] Follow up Appointment(s)/Referral(s): None,Stated [Primary Care Provider] - 07/03/22 1:00 pm (07/03/2022 1:00PM - 2:00PM BARRERA DALEY 07/04/2022 11:30AM - 12:00PM DIONE PEREZ ) Activity/Diet/Wound Care/Special Instructions: Activity and diet as tolerated. Avoid the use of street drugs and alcohol. Take all medications as prescribed. When you are in need of refills on your medications please contact your medical provider and/or outpatient psychiatrist to have this done. Please go to scheduled outpatient appointment for aftercare treatment. If symptoms return or become worse, call the crisis line at and/or go to the nearest emergency room for evaluation Discharge Disposition: HOME SELF-CARE
== END 2022-06-30 11:37 | disposition home or self-care (01) | DRG 885 ==
LOC: EC 16:07 → EEVIPCON 16:07 → 3MHU 23:15
PROVIDERS: ADMIT Psychiatry & Neurology Psychiatry; ATTEND Psychiatry & Neurology Psychiatry
DX: F31.9 Bipolar disorder, unspecified (principal); R45.851 Suicidal ideations; Z68.41 Body mass index [BMI] 40.0-44.9, adult; Z20.822 Contact with and (suspected) exposure to COVID-19; F43.10 Post-traumatic stress disorder, unspecified; F79 Unspecified intellectual disabilities; F90.9 Attention-deficit hyperactivity disorder, unspecified type; Z79.899 Other long term (current) drug therapy; Z88.8 Allergy status to other drugs, medicaments and biological substances; E66.9 Obesity, unspecified
CPT/HCPCS: 36415; 80053; 80178; 80306; 80320; 81001; 81025; 82075; 83036; 84439; 84443; 85025; 87635; 99285

== ENCOUNTER → 2023-12-04 | Outpatient (CLI) | payer OTHER | LOC: CPPFTMAIN 10:25 | PROVIDERS: ATTEND Family Medicine | DX: J45.40 Moderate persistent asthma, uncomplicated (principal); Z88.8 Allergy status to other drugs, medicaments and biological substances | CPT/HCPCS: 94060; 94726; 94729 ==

== ENCOUNTER → 2024-02-04 | Outpatient (CLI) | payer OTHER ==
[2024-02-04 16:24] VITALS: BP 106/70; PULSE 72; RESP 16; TEMP 97.5
--- NOTE | 2024-02-04 16:52 | P.SLEEP ---
History of Present Illness DATE: 02/04/2024 CONSULTATION/NEW PATIENT EVALUATION HISTORY OF PRESENT ILLNESS/SLEEP-WAKE EVALUATION: 24-year-old girl have been had been evaluated in the sleep center for possible obstructive sleep apnea hypopnea syndrome. Patient has history of obstructive sleep apnea diagnosed more than 5 years ago. At that time patient was started on treatment with CPAP, but she was not able to use CPAP equipment. SLEEP SCHEDULE: Usually sleep schedule from 11 PM to 6 AM on weekdays and from midnight until 4 AM on weekend. FALLING ASLEEP: Patient does have problems with falling asleep, although no TV in bedroom. DURING SLEEP: Patient usually sleeps on the side and stomach positions, with snoring and multiple awakenings from sleep 6 times with 5 episodes of nocturia. No history of hypnogogical hallucinations, sleep paralysis, or cataplexy. DURING THE DAY/WAKE STATE: In the morning patient wake up tired, has difficulties to pay attention, falling asleep during the day. She has problems with memory, concentration, irritability, depression, claustrophobia. [place] sleepiness scale is significantly increased to 15. Patient takes up to 6 naps during the day. PAST MEDICAL HISTORY: PTSD, ADHD, autistic borderline disorder. PAST SURGICAL HISTORY: Please see below. MEDICATIONS: Please see below. SOCIAL HISTORY: Please see below. FAMILY HISTORY: Fibromyalgia, headaches, mental illness. REVIEW OF SYSTEMS: Snoring, multiple awakenings from sleep, sleepiness during the day. No fevers. No double vision. No recent chest pain. No shortness of breath. No abdominal pain. No bleeding episodes. No blood in urine. No seizure episodes. PHYSICAL EXAMINATION: GENERAL: A pleasant patient without any distress. VITAL SIGNS: Please see below, weight 219 pounds, BMI 37.0. HEENT: PERRLA, EOMI. Evaluation of oropharynx showed tongue protrudes midline, low position of soft palate Mallampati 4. NECK: Supple. No JVD. Thyroid is not palpable. 16.5 inches in circumference. LUNGS: Clear to percussion and to auscultation. Good air exchange. No wheezing or rhonchi. HEART: S1, S2 regular. No murmurs, gallops or rubs. ABDOMEN: Soft and nontender. Bowel sounds are present. No organomegaly appreciated. EXTREMITIES: No clubbing or cyanosis. ADOBE DEVELOPER: Awake, alert, and oriented x3. Cranial nerves 2 to 7 intact. There is no fasciculation or atrophy noted. No focal deficits observed. ASSESSMENT: 1. Snoring, multiple awakenings from sleep, extremely low position of soft palate Mallampati 4, wide neck 16.5 inches circumference, sleepiness by high [place] Sleepiness Scale, history of obstructive sleep apnea hypopnea syndrome before. Obstructive sleep apnea hypopnea syndrome. 2. Obesity, BMI 37. 3. Significant excessive daytime sleepiness with [place] Sleepiness Scale 15 dictate necessity to include hypersomnia and narcolepsy and differential diagnosis. 4. History of autistic borderline disorder. 5 PTSD. 6 . ADHD. 7. Acid reflux. PLAN: 1. Polysomnography for evaluation of patient's breathing during sleep. 2. CPAP/BiPAP titration if sleep study confirms obstructive sleep apnea- hypopnea syndrome. 3. Preferable position during sleep on the side. 4. No driving if patient feels any sleepiness. Patient is aware of civil and criminal liability for unsafe driving. 5. Sleep hygiene with regular sleep time for at least 7.5-8 hours. 6. Watching and losing weight. Thank you very much for referring this patient for consultation. Sincerely, Trenton Gallagher MD, PhD, FAASM. Diplomat of [place] [employer], Sleep Medicine Board by [place] [employer] [place] [employer] [facility] [place] cc: July An MD Past Medical History Past Medical History: Asthma Additional Past Medical History / Comment(s): hypoglycemic, bipolar, adhd History of Any Multi-Drug Resistant Organisms: None Reported Past Surgical History: Ear Surgery, Orthopedic Surgery Additional Past Surgical History / Comment(s): eye surgery, foot surgery Past Psychological History: ADD/ADHD, Bipolar, PTSD Smoking Status: Never smoker Past Alcohol Use History: None Reported Past Drug Use History: None Reported - Past Family History familyi Family Medical History: Fibromyalgia, Osteoarthritis (OA) Additional Family Medical History / Comment(s): insomnia,, snoring, mental illness Medications and Allergies Home Medications Medication Instructions Recorded Confirmed Type Divalproex ER [Depakote ER] 1,500 mg PO HS 30 Days #90 tab 08/28/22 02/04/24 Rx FLUoxetine HCL [PROzac] 20 mg PO DAILY 30 Days #30 cap 08/28/22 02/04/24 Rx OLANZapine [ZyPREXA] 5 mg PO DAILY 30 Days #30 tab 08/28/22 04/26/23 Rx Prazosin [Minipress] 1 mg PO HS 30 Days #30 cap 08/28/22 02/04/24 Rx ARIPiprazole IM SYRINGE [Abilify 400 mg IM QMONTHLY 04/26/23 04/26/23 History Maintena Syringe] Albuterol Sulfate [Albuterol 1 puff PO RT-Q4H PRN 04/26/23 02/04/24 History Sulfate Hfa] Baclofen 10 mg PO BID PRN 04/26/23 02/04/24 History Butalb/APAP/Caff 50-325-40Mg 1 tab PO BID PRN 04/26/23 02/04/24 History [Fioricet 50-325-40] Ergocalciferol (Vitamin D2) 1,250 mcg PO Q7D 04/26/23 02/04/24 History [Drisdol (50,000 Iu)] [place] Carbonate 600 mg PO HS 04/26/23 02/04/24 History OLANZapine [ZyPREXA] 20 mg PO HS 04/26/23 04/26/23 History Omeprazole [PriLOSEC] 20 mg PO DAILY 04/26/23 02/04/24 History Allergies Allergy/AdvReac Type Severity Reaction Status Date / Time quetiapine [From Seroquel] Allergy Unknown Verified 04/26/23 10:32 Childhood Physical Exam Vitals: Vital Signs Temp Pulse Resp BP Pulse Ox 02/04/24 16:22 97.5 F L 72 16 106/70 99 Intake and Output 02/04/24 02/04/24 02/04/24 06:59 14:59 22:59 Other: Weight 99.337 kg Sleep Note - Sleep Data ESS Total: 15 - Sleep Note Sleep Note: Temperature: 97.5 F Pulse Rate: 72 Respiratory Rate: 16 Blood Pressure: 106/70 SpO2: 99 Height: 5 ft 4.5 in Weight: 99.337 kg BMI: Neck Circumference: 16.5
== END ==
LOC: 3 N SLEEP 15:54
PROVIDERS: ATTEND Internal Medicine
DX: G47.33 Obstructive sleep apnea (adult) (pediatric) (principal); E66.9 Obesity, unspecified; F43.10 Post-traumatic stress disorder, unspecified; F90.9 Attention-deficit hyperactivity disorder, unspecified type; K21.9 Gastro-esophageal reflux disease without esophagitis; Z86.59 Personal history of other mental and behavioral disorders; Z68.37 Body mass index [BMI] 37.0-37.9, adult; Z88.8 Allergy status to other drugs, medicaments and biological substances
CPT/HCPCS: 99211

== ENCOUNTER 2024-05-14 19:36 | Outpatient (CLI) | payer OTHER ==
--- NOTE | 2024-05-15 10:17 | P.PCN ---
Description of Procedure: POLYSOMNOGRAPHY REPORT PROCEDURE(S)/DATE(S): Polysomnography 05/14/2024 CLINICAL: Patient has been seen in the sleep center for evaluation of obstructive sleep apnea-hypopnea syndrome. Please see my consultation. Sleep study has been done for evaluation of patient breathing during the sleep. PROCEDURE: The standard montage for clinical polysomnography included the electroencephalogram, the electrooculogram, the mentalis surface electromyography and Lead II cardiography. The respiratory battery consisted of measurements of nasal/buccal air flow, pressure transducer measurements from nose, thoracic and/or abdominal effort and intercostal surface electromyography. Video monitoring has been done to check for any parasomnia events. Nocturnal oxyhemoglobin saturations were obtained by finger oximetry. Step-david titration with positive airway pressure was utilized to control the respiratory events, if necessary. RESULTS: During the diagnostic sleep study sleep efficiency was significantly decreased to 58.1%. Latency to sleep onset was normal at 16.5 min. Sleep archi tecture showed stage NI was short 1.5%, Delta sleep was normal 25.5%, REM sleep was normal 21.0%. Respiratory channel showed 0 obstructive apneas, 0 mixed apneas, 7 central apneas, 0 hypopneas with lowest oxygen level 90%. Total apnea hypopnea index was 1.6. Heart rate was in the range between 49 and 60, average 53. EMG showed 0 periodic limb movements per hour . IMPRESSIONS: 1. No significant respiratory abnormalities have been documented during the sleep study. Normal oxygenation during sleep. 2. No significant periodic limb movements have been documented. 3. Significant excessive daytime sleepiness with very high [place] Sleepiness Scale up to 22 dictate necessity to include hypersomnia and narcolepsy and differential diagnosis. Please see other impressions from consultation PLAN: 1. Multiple sleep latency test for objective evaluation symptoms of significant excessive daytime sleepiness. 2. Losing weight program. 3. Sleep hygiene with regular time in bed for at least 7-1/2 hours. 4. No driving if feeling sleepiness. 5. Following plan after reading multiple sleep latency test. Thank you very much for allowing me to participate in the management of your patient. Sincerely, Trenton Gallagher MD, PhD, FAASM. Diplomat of [place] [employer], Sleep Medicine Board by [place] [employer] Plant Technician/Control Room Operator [facility] [place] cc: July An MD
== END 2024-05-15 05:30 | disposition home or self-care (01) ==
LOC: 3 N SLEEP 19:36
PROVIDERS: ATTEND Internal Medicine
DX: G47.10 Hypersomnia, unspecified (principal); Z88.8 Allergy status to other drugs, medicaments and biological substances
CPT/HCPCS: 95810

== ENCOUNTER 2024-07-07 00:36 | Emergency (ER) | payer OTHER ==
[2024-07-07 01:02] VITALS: RESP 18; TEMP 97.9
[2024-07-07] MEDS: ACETAMINOPHEN TAB 500 MG TAB PO STA (01:20)
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
[2024-07-07 02:15] VITALS: BP 125/95; PULSE 76
== END 2024-07-07 02:15 | disposition home or self-care (01) ==
LOC: EC 00:36
DX: M79.662 Pain in left lower leg (principal); Z88.8 Allergy status to other drugs, medicaments and biological substances
CPT/HCPCS: 99283

== ENCOUNTER 2024-07-14 02:03 | Emergency (ER) | payer OTHER ==
[2024-07-14 02:23] VITALS: BP 114/72; PULSE 77; RESP 18; TEMP 98.2
--- NOTE | 2024-07-14 02:52 | ED ---
General Adult HPI - General Source: patient Mode of arrival: wheelchair <Ana Zamudio - Last Filed: 07/14/24 03:49> <Kayden Lutz - Last Filed: 07/14/24 04:18> - General Chief complaint: Extremity Injury, Lower Stated complaint: Rt ankle injury Time Seen by Provider: 07/14/24 02:51 - History of Present Illness Initial comments: 25-year-old female presenting chief complaint of right ankle injury. Patient tripped in a pothole this evening. (Ana Zamudio) 24-year-old female presenting with right ankle injury. Injury occurred yesterday. She has had pain since the time of the injury. She has been able to ambulate with assistance. No other injury reported. (Kayden Lutz) - Related Data Home Medications Medication Instructions Recorded Confirmed ARIPiprazole IM SYRINGE [Abilify 400 mg IM QMONTHLY 04/26/23 04/26/23 Maintena Syringe] Albuterol Sulfate [Albuterol 1 puff PO RT-Q4H PRN 04/26/23 02/04/24 Sulfate Hfa] Baclofen 10 mg PO BID PRN 04/26/23 02/04/24 Butalb/APAP/Caff 50-325-40Mg 1 tab PO BID PRN 04/26/23 02/04/24 [Fioricet 50-325-40] Ergocalciferol (Vitamin D2) 1,250 mcg PO Q7D 04/26/23 02/04/24 [Drisdol (50,000 Iu)] [place] Carbonate 600 mg PO HS 04/26/23 02/04/24 OLANZapine [ZyPREXA] 20 mg PO HS 04/26/23 04/26/23 Omeprazole [PriLOSEC] 20 mg PO DAILY 04/26/23 02/04/24 Previous Rx's Medication Instructions Recorded Divalproex ER [Depakote ER] 1,500 mg PO HS 30 Days #90 tab 08/28/22 FLUoxetine HCL [PROzac] 20 mg PO DAILY 30 Days #30 cap 08/28/22 OLANZapine [ZyPREXA] 5 mg PO DAILY 30 Days #30 tab 08/28/22 Prazosin [Minipress] 1 mg PO HS 30 Days #30 cap 08/28/22 Acetaminophen [Acetaminophen 8 hr] 650 mg PO Q8H PRN #21 tab 07/07/24 Allergies Allergy/AdvReac Type Severity Reaction Status Date / Time quetiapine [From Seroquel] Allergy Unknown Verified 07/14/24 02:23 Childhood Review of Systems ROS Other: All systems not noted in ROS Statement are negative. <Ana Zamudio - Last Filed: 07/14/24 03:49> ROS Other: All systems not noted in ROS Statement are negative. <Kayden Lutz - Last Filed: 07/14/24 04:18> ROS Statement: Those systems with pertinent positive or pertinent negative responses have been documented in the HPI. Past Medical History Past Medical History: Asthma Additional Past Medical History / Comment(s): hypoglycemic, bipolar, adhd History of Any Multi-Drug Resistant Organisms: None Reported Past Surgical History: Ear Surgery, Orthopedic Surgery Additional Past Surgical History / Comment(s): eye surgery, foot surgery Past Psychological History: ADD/ADHD, Bipolar, PTSD Smoking Status: Never smoker Past Alcohol Use History: None Reported Past Drug Use History: None Reported - Past Family History familyi Family Medical History: Fibromyalgia, Osteoarthritis (OA) Additional Family Medical History / Comment(s): insomnia,, snoring, mental illness <Ana Zamudio - Last Filed: 07/14/24 03:49> General Exam <Ana Zamudio - Last Filed: 07/14/24 03:49> General appearance: alert, in no apparent distress Head exam: Present: atraumatic, normocephalic Eye exam: Present: normal appearance, PERRL ENT exam: Present: normal exam Respiratory exam: Present: normal lung sounds bilaterally. Absent: respiratory distress, wheezes Cardiovascular Exam: Present: regular rate, normal rhythm Extremities exam: Present: normal inspection, tenderness, normal capillary refill. Absent: full ROM, joint swelling Neurological exam: Present: alert, oriented X3 Psychiatric exam: Present: normal affect, normal mood Skin exam: Present: dry, intact <Kayden Lutz - Last Filed: 07/14/24 04:18> - General Exam Comments Initial Comments: Visual Physical Exam Vital signs reviewed General: Well-appearing, nontoxic, no acute distress. Head: Normocephalic, atraumatic Eyes: PERRLA, EOMI ENT: Airway patent Chest: Nonlabored breathing Skin: No visual rash, normal skin tone Neuro: Alert and oriented 3 Musculoskeletal: No gross abnormalities (Ana Zamudio) Course Vital Signs 07/14/24 02:21 Temperature 98.2 F Pulse Rate 77 Respiratory 18 Rate Blood Pressure 114/72 O2 Sat by Pulse 100 Oximetry Medical Decision Making <Ana Zamudio - Last Filed: 07/14/24 03:49> <Kayden Lutz Dana - Last Filed: 07/14/24 04:18> - Medical Decision Making I performed the quick note portion of this visit, electronically signed Ana Zamudio PA-C (Ana Zamudio) Was pt. sent in by a medical professional or institution (IRAIDA Wall, DECKHAND ENGINEER, urgent care, hospital, or penitentiary...) When possible be specific @ -No Did you speak to anyone other than the patient for history (EMS, parent, family, police, friend...)? What history was obtained from this source @ -No Did you review nursing and triage notes (agree or disagree)? Why? @ -I reviewed and agree with nursing and triage notes Were old charts reviewed (outside hosp., previous admission, EMS record, old EKG, old radiological studies, urgent care reports/EKG's, penitentiary records)? Report findings @ -No old charts were reviewed Differential Musculoskeletal Muscular strain, contusion, ligament sprain, fracture, arthritis, septic arthritis, bursitis, cellulitis, muscle spasm, nerve compression, DVT, arterial occlusion, herpes zoster, electrolyte abnormality, tumor.... This is not meant to be in all inclusive list EKG interpreted by me (3pts min.). @ -As above X-rays interpreted by me (1pt min.). @ -X-ray of the right foot and ankle are negative for displaced fracture or dislocation CT interpreted by me (1pt min.). @ -None done U/S interpreted by me (1pt. min.). @ -None done What testing was considered but not performed or refused? (CT, X-rays, U/S, labs)? Why? @ -None What meds were considered but not given or refused? Why? @ -None Did you discuss the management of the patient with other professionals (professionals i.e. IRAIDA Wall, DECKHAND ENGINEER, lab, RT, psych nurse, social service worker, professional bondsman, teacher, multisensor intelligence officer, employment evaluator/case manager)? Give summary @ -No Was smoking cessation discussed for >3mins.? @ -No Was critical care preformed (if so, how long)? @ -No Were there social determinants of health that impacted care today? How? (Homelessness, low income, unemployed, alcoholism, drug addiction, transporta tion, low edu. Level, literacy, decrease access to med. care, prison, rehab)? @ -No Was there de-escalation of care discussed even if they declined (Discuss DNR or withdrawal of care, Hospice)? DNR status @ -No What co-morbidities impacted this encounter? (DM, HTN, Smoking, COPD, CAD, Cancer, CVA, ARF, Chemo, Hep., AIDS, mental health diagnosis, sleep apnea, morbid obesity)? @ -None Was patient admitted / discharged? Hospital course, mention meds given and route, prescriptions, significant lab abnormalities, going to OR and other pertinent info. @24-year-old female with right ankle injury, x-rays are negative for fracture or dislocation. Patient placed in an Gavino wrap and given orthopedic follow-up. Undiagnosed new problem with uncertain prognosis? @ -No Drug Therapy requiring intensive monitoring for toxicity (Heparin, Nitro, Insulin, Cardizem)? @ -No Were any procedures done? @ -No Diagnosis/symptom? @ -[Ankle sprain Acute, or Chronic, or Acute on Chronic? @ -Acute Uncomplicated (without systemic symptoms) or Complicated (systemic symptoms)? @ -Default Side effects of treatment? @ -No Exacerbation, Progression, or Severe Exacerbation? @ -No Poses a threat to life or bodily function? How? (Chest pain, [place], [place], pneumonia, PE, COPD, DKA, ARF, appy, cholecystitis, CVA, Diverticulitis, Homicidal, Suicidal, threat to staff... and all critical care pts) @ -No (Kayden Lutz) Disposition <Ana Zamudio - Last Filed: 07/14/24 03:49> Is patient prescribed a controlled substance at d/c from ED?: No Time of Disposition: 04:14 <Kayden Lutz - Last Filed: 07/14/24 04:18> Clinical Impression: Ankle sprain Disposition: HOME SELF-CARE Condition: Fair Instructions (If sedation given, give patient instructions): Ankle Sprain (ED) Referrals: None,Stated [Primary Care Provider] - 1-2 days David Harry MD [STAFF PHYSICIAN] - 1-2 days
--- NOTE | 2024-07-14 04:29 | XR ---
EXAM: XR Right Ankle Complete, 3 Views CLINICAL HISTORY: R foot pain. Patient states she tripped in a pot hole earlier in the day. TECHNIQUE: Frontal, lateral and oblique views of the right ankle. COMPARISON: 03/08/18 FINDINGS: Bones/joints: No fracture or dislocation. Soft tissues: Unremarkable. IMPRESSION: No fracture
--- NOTE | 2024-07-14 04:30 | XR ---
EXAM: XR Right Foot Complete, 3 Views CLINICAL HISTORY: injury TECHNIQUE: Frontal, lateral and oblique views of the right foot. COMPARISON: 03/08/18 FINDINGS: Bones/joints: No fracture or dislocation. Soft tissues: Unremarkable. IMPRESSION: No fracture
== END 2024-07-14 03:30 | disposition home or self-care (01) ==
LOC: EC 02:03
DX: S93.401A Sprain of unspecified ligament of right ankle, initial encounter (principal); Z88.8 Allergy status to other drugs, medicaments and biological substances; W18.40XA Slipping, tripping and stumbling without falling, unspecified, initial encounter
CPT/HCPCS: 99284

== ENCOUNTER 2024-07-15 20:16 | Emergency (ER) | payer OTHER ==
[2024-07-15 20:23] VITALS: RESP 18; TEMP 98.1
--- NOTE | 2024-07-15 21:38 | ED ---
General Adult HPI - General Chief complaint: Psychiatric Symptoms Stated complaint: Mental Health Time Seen by Provider: 07/15/24 20:51 Source: patient, police, RN notes reviewed Mode of arrival: ambulatory Limitations: no limitations - History of Present Illness Initial comments: 24-year-old female presents to the emergency department under court order pickup for mental health evaluation. According to the patient has been off of her medications for the past 10 days. The patient believes she is but according to the physician this is false. Reports that she is having hallucinations. Patient denies any suicidal ideation, homicidal ideation. - Related Data Home Medications Medication Instructions Recorded Confirmed ARIPiprazole IM SYRINGE [Abilify 400 mg IM QMONTHLY 04/26/23 04/26/23 Maintena Syringe] Albuterol Sulfate [Albuterol 1 puff PO RT-Q4H PRN 04/26/23 02/04/24 Sulfate Hfa] Baclofen 10 mg PO BID PRN 04/26/23 02/04/24 Butalb/APAP/Caff 50-325-40Mg 1 tab PO BID PRN 04/26/23 02/04/24 [Fioricet 50-325-40] Ergocalciferol (Vitamin D2) 1,250 mcg PO Q7D 04/26/23 02/04/24 [Drisdol (50,000 Iu)] [place] Carbonate 600 mg PO HS 04/26/23 02/04/24 OLANZapine [ZyPREXA] 20 mg PO HS 04/26/23 04/26/23 Omeprazole [PriLOSEC] 20 mg PO DAILY 04/26/23 02/04/24 Previous Rx's Medication Instructions Recorded Divalproex ER [Depakote ER] 1,500 mg PO HS 30 Days #90 tab 08/28/22 FLUoxetine HCL [PROzac] 20 mg PO DAILY 30 Days #30 cap 08/28/22 OLANZapine [ZyPREXA] 5 mg PO DAILY 30 Days #30 tab 08/28/22 Prazosin [Minipress] 1 mg PO HS 30 Days #30 cap 08/28/22 Acetaminophen [Acetaminophen 8 hr] 650 mg PO Q8H PRN #21 tab 07/07/24 Allergies Allergy/AdvReac Type Severity Reaction Status Date / Time quetiapine [From Seroquel] Allergy Unknown Verified 07/15/24 20:23 Childhood Review of Systems ROS Statement: Those systems with pertinent positive or pertinent negative responses have been documented in the HPI. ROS Other: All systems not noted in ROS Statement are negative. Past Medical History Past Medical History: Asthma Additional Past Medical History / Comment(s): hypoglycemic, bipolar, adhd History of Any Multi-Drug Resistant Organisms: None Reported Past Surgical History: Ear Surgery, Orthopedic Surgery Additional Past Surgical History / Comment(s): eye surgery, foot surgery Past Psychological History: ADD/ADHD, Bipolar, PTSD Smoking Status: Never smoker Past Alcohol Use History: None Reported Past Drug Use History: None Reported - Past Family History familyi Family Medical History: Fibromyalgia, Osteoarthritis (OA) Additional Family Medical History / Comment(s): insomnia,, snoring, mental illness General Exam Limitations: no limitations General appearance: alert, in no apparent distress Head exam: Present: atraumatic, normocephalic, normal inspection Eye exam: Present: normal appearance, PERRL, EOMI. Absent: scleral icterus, conjunctival injection, periorbital swelling ENT exam: Present: normal exam, mucous membranes moist Neck exam: Present: normal inspection. Absent: tenderness, meningismus, lymphadenopathy Respiratory exam: Present: normal lung sounds bilaterally. Absent: respiratory distress, wheezes, rales, rhonchi, stridor Cardiovascular Exam: Present: regular rate, normal rhythm, normal heart sounds. Absent: systolic murmur, diastolic murmur, rubs, gallop, clicks GI/Abdominal exam: Present: soft. Absent: distended, tenderness, guarding, rebound, rigid Extremities exam: Present: normal inspection, full ROM, normal capillary refill. Absent: tenderness, pedal edema, joint swelling, calf tenderness Back exam: Present: normal inspection Neurological exam: Present: alert, oriented X3 Psychiatric exam: Present: normal affect, normal mood Skin exam: Present: warm, dry, intact, normal color. Absent: rash Course Vital Signs 07/15/24 20:21 Temperature 98.1 F Pulse Rate 92 Respiratory 18 Rate Blood Pressure 125/83 O2 Sat by Pulse 99 Oximetry Medical Decision Making - Medical Decision Making Was pt. sent in by a medical professional or institution (, PA, RESHIPPING CLERK, urgent care, hospital, or group home...) When possible be specific @ -[No] Did you speak to anyone other than the patient for history (EMS, parent, family, police, friend...)? What history was obtained from this source @ -[No] Did you review nursing and triage notes (agree or disagree)? Why? @ -[I reviewed and agree with nursing and triage notes] Were old charts reviewed (outside hosp., previous admission, EMS record, old EKG, old radiological studies, urgent care reports/EKG's, group home records)? Report findings @ -[No old charts were reviewed] Differential Diagnosis (chest pain, altered mental status, abdominal pain women, abdominal pain men, vaginal bleeding, weakness, fever, dyspnea, syncope, headache, dizziness, GI bleed, back pain, seizure, CVA, palpatations, mental health, musculoskeletal)? @ -Differential Mental Health Depression, anxiety, bipolar, psychosis, schizophrenia, borderline personality, situational depression, adjustment disorder, behavioral disorder, brain tumor, malingering, substance abuse, encephalopathy, medication reaction, dementia, hypothyroidism, degenerative neurologic disorder, lupus.... This is not meant to be all-inclusive list EKG interpreted by me (3pts min.). @ -None X-rays interpreted by me (1pt min.). @ -[None done] CT interpreted by me (1pt min.). @ -[None done] U/S interpreted by me (1pt. min.). @ -[None done] What testing was considered but not performed or refused? (CT, X-rays, U/S, labs)? Why? @ -[None] What meds were considered but not given or refused? Why? @ -[None] Did you discuss the management of the patient with other professionals (professionals i.e. , PA, RESHIPPING CLERK, lab, RT, psych nurse, social media marketer, human resources representative, t eacher, juvenile probation officer, counter caser)? Give summary @ -[No] Was smoking cessation discussed for >3mins.? @ -[No] Was critical care preformed (if so, how long)? @ -[No] Were there social determinants of health that impacted care today? How? (Homelessness, low income, unemployed, alcoholism, drug addiction, transportation, low edu. Level, literacy, decrease access to med. care, skilled nursing, rehab)? @ -[No] Was there de-escalation of care discussed even if they declined (Discuss DNR or withdrawal of care, Hospice)? DNR status @ -[No] What co-morbidities impacted this encounter? (DM, HTN, Smoking, COPD, CAD, Cancer, CVA, ARF, Chemo, Hep., AIDS, mental health diagnosis, sleep apnea, morbid obesity)? @ -[None] Was patient admitted / discharged? Hospital course, mention meds given and route, prescriptions, significant lab abnormalities, going to OR and other pertinent info. @ -[hospital course] Undiagnosed new problem with uncertain prognosis? @ -[No] Drug Therapy requiring intensive monitoring for toxicity (Heparin, Nitro, Insulin, Cardizem)? @ -[No] Were any procedures done? @ -[No] Diagnosis/symptom? @ -[default] Acute, or Chronic, or Acute on Chronic? @ -[default] Uncomplicated (without systemic symptoms) or Complicated (systemic symptoms)? @ -[default] Side effects of treatment? @ -[No] Exacerbation, Progression, or Severe Exacerbation? @ -[No] Poses a threat to life or bodily function? How? (Chest pain, [place], [place], pneumonia, PE, COPD, DKA, ARF, appy, cholecystitis, CVA, Diverticulitis, Homicidal, Suicidal, threat to staff... and all critical care pts) @ -[No] - Lab Data Lab Results 07/15/24 07/15/24 07/15/24 Range/Units 22:00 22:24 22:24 Urine HCG, Qual Not Detected (Not Detectd) Urine Opiates Screen Not Detected (NotDetected) Ur Oxycodone Screen Not Detected (NotDetected) Urine Methadone Screen Not Detected (NotDetected) Ur Barbiturates Screen Not Detected (NotDetected) U Tricyclic Antidepress Not Detected (NotDetected) Ur Phencyclidine Scrn Not Detected (NotDetected) Ur Amphetamines Screen Not Detected (NotDetected) U Methamphetamines Scrn Not Detected (NotDetected) U Benzodiazepines Scrn Not Detected (NotDetected) Urine Cocaine Screen Not Detected (NotDetected) U Marijuana (THC) Screen Not Detected (NotDetected) Influenza Type A (PCR) Not Detected (Not Detectd) Influenza Type B (PCR) Not Detected (Not Detectd) RSV (PCR) Not Detected (Not Detectd) SARS-CoV-2 (PCR) Not Detected (Not Detectd) Disposition Clinical Impression: Bipolar disorder, unspecified Disposition: HOME SELF-CARE Condition: Stable Additional Instructions: Please follow your care plan. Return to the emergency department if you feel like you are a danger to yourself or others. Is patient prescribed a controlled substance at d/c from ED?: No Referrals: None,Stated [Primary Care Provider] - 1-2 days
[2024-07-15 22:55] LABS: Amphetamine Screen,Urine Not Detected (NotDetected); Barbiturate Screen,Urine Not Detected (NotDetected); Benzodiazepines Screen,Urine Not Detected (NotDetected); Cocaine Screen,Urine Not Detected (NotDetected); Methadone Screen, Urine Not Detected (NotDetected); Opiate Screen,Urine Not Detected (NotDetected); Oxycodone Screen, Urine Not Detected (NotDetected); Phencyclidine Screen,Urine Not Detected (NotDetected); Tricyclic Antidepressant,Urine Not Detected (NotDetected); Urn Cannabinoid Scrn Not Detected (NotDetected)
[2024-07-16 02:21] VITALS: BP 115/71; PULSE 64
== END 2024-07-16 02:23 | disposition home or self-care (01) ==
LOC: EC 20:16
DX: F31.9 Bipolar disorder, unspecified (principal); Z11.52 Encounter for screening for COVID-19; Z88.8 Allergy status to other drugs, medicaments and biological substances
CPT/HCPCS: 80306; 81025; 82075; 87636; 99285

== ENCOUNTER 2024-07-20 21:54 | Emergency (ER) | payer OTHER ==
[2024-07-20 22:13] VITALS: TEMP 97.7
--- NOTE | 2024-07-20 22:22 | ED ---
General Adult HPI - General Chief complaint: Psychiatric Symptoms Stated complaint: Petition Time Seen by Provider: 07/20/24 22:00 Source: police Mode of arrival: ambulatory Limitations: no limitations - History of Present Illness Initial comments: Dictation was produced using [employer] dictation software. please excuse any grammatical, word or spelling errors. Chief Complaint: 24-year-old female with known psychiatric history presents to the emergency department for aggressive behavior and delusional thinking History of Present Illness: Patient 24-year-old female she has past medical history of bipolar disorder. Patient was brought in after she was displaying aggressive behavior [facility] the jail. Upon force was called. Patient was apparently showing signs of delusions. Patient was stating to police that she had other people after her. Patient denies any such claims. She states that she was having a moment. Denies any suicidal homicidal ideation. Patient denies any physical complaints. The ROS documented in this emergency department record has been reviewed and confirmed by me. Those systems with pertinent positive or negative responses have been documented in the HPI. All other systems are other negative and/or noncontributory. - Related Data Home Medications Medication Instructions Recorded Confirmed ARIPiprazole IM SYRINGE [Abilify 400 mg IM QMONTHLY 04/26/23 04/26/23 Maintena Syringe] Albuterol Sulfate [Albuterol 1 puff PO RT-Q4H PRN 04/26/23 02/04/24 Sulfate Hfa] Baclofen 10 mg PO BID PRN 04/26/23 02/04/24 Butalb/APAP/Caff 50-325-40Mg 1 tab PO BID PRN 04/26/23 02/04/24 [Fioricet 50-325-40] Ergocalciferol (Vitamin D2) 1,250 mcg PO Q7D 04/26/23 02/04/24 [Drisdol (50,000 Iu)] [place] Carbonate 600 mg PO HS 04/26/23 02/04/24 OLANZapine [ZyPREXA] 20 mg PO HS 04/26/23 04/26/23 Omeprazole [PriLOSEC] 20 mg PO DAILY 04/26/23 02/04/24 Previous Rx's Medication Instructions Recorded Divalproex ER [Depakote ER] 1,500 mg PO HS 30 Days #90 tab 08/28/22 FLUoxetine HCL [PROzac] 20 mg PO DAILY 30 Days #30 cap 08/28/22 OLANZapine [ZyPREXA] 5 mg PO DAILY 30 Days #30 tab 08/28/22 Prazosin [Minipress] 1 mg PO HS 30 Days #30 cap 08/28/22 Acetaminophen [Acetaminophen 8 hr] 650 mg PO Q8H PRN #21 tab 07/07/24 Allergies Allergy/AdvReac Type Severity Reaction Status Date / Time quetiapine [From Seroquel] Allergy Unknown Verified 07/20/24 22:13 Childhood Review of Systems ROS Statement: Those systems with pertinent positive or pertinent negative responses have been documented in the HPI. ROS Other: All systems not noted in ROS Statement are negative. Past Medical History Past Medical History: Asthma Additional Past Medical History / Comment(s): hypoglycemic, bipolar, adhd History of Any Multi-Drug Resistant Organisms: None Reported Past Surgical History: Ear Surgery, Orthopedic Surgery Additional Past Surgical History / Comment(s): eye surgery, foot surgery Past Psychological History: ADD/ADHD, Bipolar, PTSD Smoking Status: Never smoker Past Alcohol Use History: None Reported Past Drug Use History: None Reported - Past Family History familyi Family Medical History: Fibromyalgia, Osteoarthritis (OA) Additional Family Medical History / Comment(s): insomnia,, snoring, mental illness General Exam - General Exam Comments Initial Comments: General: Well-appearing, nontoxic, no acute distress. Head: Normocephalic, atraumatic Eyes: PERRLA, EOMI ENT: Airway patent Chest: Nonlabored breathing Skin: No visual rash, normal skin tone Neuro: Alert and oriented 3 Musculoskeletal: No gross abnormalities Limitations: no limitations Course Vital Signs 07/20/24 07/20/24 21:57 22:09 Temperature 98.1 F 97.7 F Pulse Rate 146 H 110 H Respiratory 20 20 Rate Blood Pressure 116/71 115/77 O2 Sat by Pulse 98 98 Oximetry Medical Decision Making - Medical Decision Making Was pt. sent in by a medical professional or institution (, PA, DYNAMICIST, urgent care, hospital, or care home...) When possible be specific @ -No Did you speak to anyone other than the patient for history (EMS, parent, family, police, friend...)? What history was obtained from this source @ -Police as described above Did you review nursing and triage notes (agree or disagree)? Why? @ -I reviewed and agree with nursing and triage notes Were old charts reviewed (outside hosp., previous admission, EMS record, old EKG, old radiological studies, urgent care reports/EKG's, care home records)? Report findings @ -No old charts were reviewed Differential Diagnosis (chest pain, altered mental status, abdominal pain women, abdominal pain men, vaginal bleeding, musculoskeletal, weakness, fever, dyspnea, syncope, headache, dizziness, GI bleed, back pain, seizure, CVA, palpatations, mental health)? @ -Differential Mental Health: Depression, anxiety, bipolar, psychosis, schizophrenia, borderline personality, situational depression, adjustment disorder, behavioral disorder, brain tumor, malingering, substance abuse, encephalopathy, medication reaction, dementia, hypothyroidism, degenerative neurologic disorder, lupus.... This is not meant to be all-inclusive list EKG interpreted by me (3pts min.). @ -None done X-rays interpreted by me (1pt min.). @ -None done CT interpreted by me (1pt min.). @ -None done U/S interpreted by me (1pt. min.). @ -None done What testing was considered but not performed or refused? (CT, X-rays, U/S, labs)? Why? @ -None What meds were considered but not given or refused? Why? @ -None Was smoking cessation discussed for >3mins.? @ -No Were there social determinants of health that impacted care today? How? (Homelessness, low income, unemployed, alcoholism, drug addiction, transportation, low edu. Level, literacy, decrease access to med. care, custodial, rehab)? @ -No Was there de-escalation of care discussed even if they declined (Discuss DNR or withdrawal of care, Hospice)? DNR status @ -No What co-morbidities impacted this encounter? (DM, HTN, Smoking, COPD, CAD, Cancer, CVA, ARF, Chemo, Hep., AIDS, mental health diagnosis, sleep apnea, morbid obesity)? @ -None Was patient admitted / discharged? Hospital course, mention meds given and route, prescriptions, significant lab abnormalities, going to OR and other pertinent info. @ -24-year-old female known psychiatric history presents to the ER for acute psychosis. According to police patient had delusional thinking and symptoms consistent with acute psychosis. Patient denies such claims. Vital signs stable. Physical examination is benign. Patient medically cleared for EPS evaluation. Patient evaluated by EPS recommended discharge with safety plan. Did you discuss the management of the patient with other professionals (professionals i.e. , PA, DYNAMICIST, lab, RT, psych nurse, social worker health services, line decorator, teacher, surveillance sensor officer, counter caser)? Give summary @ -See above Was critical care preformed (if so, how long)? @ -No Undiagnosed new problem with uncertain prognosis? @ -No Drug Therapy requiring intensive monitoring for toxicity (Heparin, Nitro, Insulin, Cardizem)? @ -No Were any procedures done? @ -No Diagnosis/symptom? Acute, or Chronic, or Acute on Chronic? Uncomplicated (without systemic symptoms) or Complicated (systemic symptoms)? @ -Acute psychosis Side effects of treatment? @ -No Exacerbation, Progression, or Severe Exacerbation? @ -No Poses a threat to life or bodily function? How? (Chest pain, [place], [place], pneumonia, PE, COPD, DKA, ARF, appy, cholecystitis, CVA, Diverticulitis, Homicidal, Suicidal, threat to staff... and all critical care pts) @ -yes Disposition Clinical Impression: Psychosis Disposition: HOME SELF-CARE Condition: Good Instructions (If sedation given, give patient instructions): Medical Clearance for Psychiatric Care (ED) Is patient prescribed a controlled substance at d/c from ED?: No Referrals: None,Stated [Primary Care Provider] - 1-2 days Time of Disposition: 22:55
[2024-07-20 23:37] VITALS: BP 119/82; PULSE 78; RESP 18
== END 2024-07-20 23:35 | disposition home or self-care (01) ==
LOC: EC 21:54
DX: F23 Brief psychotic disorder (principal); Z88.8 Allergy status to other drugs, medicaments and biological substances
CPT/HCPCS: 82075; 99284

== ENCOUNTER 2024-09-10 17:30 | Emergency (ER) | payer OTHER ==
--- NOTE | 2024-09-10 17:58 | ED ---
Extremity Problem HPI - General Source: patient, family, RN notes reviewed Mode of arrival: wheelchair Limitations: no limitations <Meghan Mack - Last Filed: 09/10/24 17:56> <Rayo Zamudio - Last Filed: 09/10/24 19:44> - General Chief complaint: Extremity Injury, Lower Stated complaint: R foot injury Time Seen by Provider: 09/10/24 17:50 - History of Present Illness Initial comments: Quick Note: This is a 24-year-old female who presents to the emergency department for a right foot injury. Reports a crushing injury to the right foot a couple of months ago. States that she had followed up with podiatry and they were concerned about nerve damage. There does seem to be some confusion, as she has a referral slip with her that advised she follow-up with Dr. Ramos, neurology, however she seems to be under the impression that she needed to come here instead. Again, history is not quite clear. (Meghan Mack) Dictation was produced using Pluralsight dictation software. please excuse any grammatical, word or spelling errors. Chief Complaint: 24-year-old female psychiatric illness, bipolar disease presents to the ER for foot issues History of Present Illness: Patient is a 24-year-old female she has history of bipolar disease, psychiatric delusions. Patient states that she suffered multiple crush injuries over the last month and a half leading to chronic numbness. She saw a dat instructor down in [facility]. Patient was given a referral to neurology. After that appointment patient called a different dat instructor, Amina Burrows who told her to come to the emergency room. Patient states that over the last several weeks she has had chronic numbness and loss of function of the right foot The ROS documented in this emergency department record has been reviewed and confirmed by me. Those systems with pertinent positive or negative responses have been documented in the HPI. All other systems are other negative and/or noncontributory. (Rayo Zamudio) - Related Data Home Medications Medication Instructions Recorded Confirmed ARIPiprazole IM SYRINGE [Abilify 400 mg IM QMONTHLY 04/26/23 04/26/23 Maintena Syringe] Albuterol Sulfate [Albuterol 1 puff PO RT-Q4H PRN 04/26/23 02/04/24 Sulfate Hfa] Baclofen 10 mg PO BID PRN 04/26/23 02/04/24 Butalb/APAP/Caff 50-325-40Mg 1 tab PO BID PRN 04/26/23 02/04/24 [Fioricet 50-325-40] Ergocalciferol (Vitamin D2) 1,250 mcg PO Q7D 04/26/23 02/04/24 [Drisdol (50,000 Iu)] [place] Carbonate 600 mg PO HS 04/26/23 02/04/24 OLANZapine [ZyPREXA] 20 mg PO HS 04/26/23 04/26/23 Omeprazole [PriLOSEC] 20 mg PO DAILY 04/26/23 02/04/24 Previous Rx's Medication Instructions Recorded Divalproex ER [Depakote ER] 1,500 mg PO HS 30 Days #90 tab 08/28/22 FLUoxetine HCL [PROzac] 20 mg PO DAILY 30 Days #30 cap 08/28/22 OLANZapine [ZyPREXA] 5 mg PO DAILY 30 Days #30 tab 08/28/22 Prazosin [Minipress] 1 mg PO HS 30 Days #30 cap 08/28/22 Acetaminophen [Acetaminophen 8 hr] 650 mg PO Q8H PRN #21 tab 07/07/24 Allergies Allergy/AdvReac Type Severity Reaction Status Date / Time quetiapine [From Seroquel] Allergy Unknown Verified 09/10/24 18:57 Childhood Review of Systems ROS Other: All systems not noted in ROS Statement are negative. <Meghan Mack - Last Filed: 09/10/24 17:56> ROS Other: All systems not noted in ROS Statement are negative. <Rayo Zamudio - Last Filed: 09/10/24 19:44> ROS Statement: Those systems with pertinent positive or pertinent negative responses have been documented in the HPI. Past Medical History Past Medical History: Asthma Additional Past Medical History / Comment(s): hypoglycemic, bipolar, adhd History of Any Multi-Drug Resistant Organisms: None Reported Past Surgical History: Ear Surgery, Orthopedic Surgery Additional Past Surgical History / Comment(s): eye surgery, foot surgery Past Psychological History: ADD/ADHD, Bipolar, PTSD Smoking Status: Never smoker Past Alcohol Use History: None Reported Past Drug Use History: None Reported - Past Family History familyi Family Medical History: Fibromyalgia, Osteoarthritis (OA) Additional Family Medical History / Comment(s): insomnia,, snoring, mental illness <Meghan Mack - Last Filed: 09/10/24 17:56> General Exam <Meghan Mack - Last Filed: 09/10/24 17:56> <Rayo Zamudio - Last Filed: 09/10/24 19:44> - General Exam Comments Initial Comments: Visual Physical Exam Vital signs reviewed General: Well-appearing, nontoxic, no acute distress. Head: Normocephalic, atraumatic Eyes: PERRLA, EOMI ENT: Airway patent Chest: Nonlabored breathing Skin: No visual rash, normal skin tone Neuro: Alert and oriented 3 Musculoskeletal: No gross abnormalities (Meghan Mack) General: Well-appearing, nontoxic, no acute distress. Head: Normocephalic, atraumatic Eyes: PERRLA, EOMI ENT: Airway patent Chest: Nonlabored breathing Skin: No visual rash, normal skin tone Neuro: Alert and oriented 3 Musculoskeletal: No gross abnormalities Right foot: Diminished sensation to light touch of the right foot intact pulse at the dorsalis pedis and posterior tibialis (Rayo Zamudio) Course Vital Signs 09/10/24 18:51 Temperature 97.6 F Pulse Rate 56 L Respiratory 19 Rate Blood Pressure 122/80 O2 Sat by Pulse 98 Oximetry Medical Decision Making <Meghan Mack - Last Filed: 09/10/24 17:56> <Rayo Zamudio - Last Filed: 09/10/24 19:44> - Medical Decision Making I performed the QuickNote portion of this chart. Signed Meghan Mack PA-C. (Meghan Mack) Was pt. sent in by a medical professional or institution (IRAIDA Wall, HYDRAULIC REPAIRER, urgent care, hospital, or fdc...) When possible be specific @ -No Did you speak to anyone other than the patient for history (EMS, parent, family, police, friend...)? What history was obtained from this source @ -Fianc at the bedside aids in providing history present illness Did you review nursing and triage notes (agree or disagree)? Why? @ -I reviewed and agree with nursing and triage notes Were old charts reviewed (outside hosp., previous admission, EMS record, old EKG, old radiological studies, urgent care reports/EKG's, fdc records)? Report findings @ -Previous admissions reviewed shows that patient was admitted for bipolar di sease Differential Diagnosis (chest pain, altered mental status, abdominal pain women, abdominal pain men, vaginal bleeding, musculoskeletal, weakness, fever, dyspnea, syncope, headache, dizziness, GI bleed, back pain, seizure, CVA, palpatations, mental health)? @ -Foot drop, foot injury, Lisfranc EKG interpreted by me (3pts min.). @ -None done X-rays interpreted by me (1pt min.). @ -None done CT interpreted by me (1pt min.). @ -None done U/S interpreted by me (1pt. min.). @ -None done What testing was considered but not performed or refused? (CT, X-rays, U/S, labs)? Why? @ -None What meds were considered but not given or refused? Why? @ -None Was smoking cessation discussed for >3mins.? @ -No Were there social determinants of health that impacted care today? How? (Homelessness, low income, unemployed, alcoholism, drug addiction, transportation, low edu. Level, literacy, decrease access to med. care, longterm, rehab)? @ -No Was there de-escalation of care discussed even if they declined (Discuss DNR or withdrawal of care, Hospice)? DNR status @ -No What co-morbidities impacted this encounter? (DM, HTN, Smoking, COPD, CAD, Cancer, CVA, ARF, Chemo, Hep., AIDS, mental health diagnosis, sleep apnea, morbid obesity)? @ -None Was patient admitted / discharged? Hospital course, mention meds given and route, prescriptions, significant lab abnormalities, going to OR and other pe rtinent info. @ -24-year-old female presents to the emergency department for chronic foot issues. She was some however directed to the emergency department after over the phone conversation with dat instructor. Patient has chronic foot issues that have been ongoing for the last month and a half she has been seen multiple specialist. She states that she has not got any specific answers. Refusing x- ray here in our ER. Nonetheless given that she does not have any acute issues she will be discharged. Did you discuss the management of the patient with other professionals (professionals i.e. , PA, HYDRAULIC REPAIRER, lab, RT, psych nurse, perinatal social worker, digitizer, teacher, occupational medicine officer, complex case manager)? Give summary @ -Case discussed with Veda Ramírez, dat instructor who saw patient today states that she had just establish care with her today. She provided patient with neurology consultation Was critical care preformed (if so, how long)? @ -No Undiagnosed new problem with uncertain prognosis? @ -No Drug Therapy requiring intensive monitoring for toxicity (Heparin, Nitro, Insulin, Cardizem)? @ -No Were any procedures done? @ -No Diagnosis/symptom? Acute, or Chronic, or Acute on Chronic? Uncomplicated (without systemic symptoms) or Complicated (systemic symptoms)? @ -Chronic foot numbness Side effects of treatment? @ -No Exacerbation, Progression, or Severe Exacerbation? @ -No Poses a threat to life or bodily function? How? (Chest pain, [place], [place], pneumonia, PE, COPD, DKA, ARF, appy, cholecystitis, CVA, Diverticulitis, Homicidal, Suicidal, threat to staff... and all critical care pts) @ -yes (Rayo Zamudio) Disposition <Meghan Mack - Last Filed: 09/10/24 17:56> Is patient prescribed a controlled substance at d/c from ED?: No Time of Disposition: 19:44 <Rayo Zamudio - Last Filed: 09/10/24 19:44> Clinical Impression: Numbness of foot Disposition: HOME SELF-CARE Condition: Good Instructions (If sedation given, give patient instructions): Crush Injury (ED) Referrals: Armand Leavitt [Primary Care Provider] - 1-2 days
[2024-09-10 18:57] VITALS: TEMP 97.6
[2024-09-10 19:51] VITALS: BP 118/71; PULSE 68; RESP 18
== END 2024-09-10 19:54 | disposition home or self-care (01) ==
LOC: EC 17:30 → EEVIPCON 17:30 → EC 19:54
DX: G57.91 Unspecified mononeuropathy of right lower limb (principal); F31.9 Bipolar disorder, unspecified; Z88.8 Allergy status to other drugs, medicaments and biological substances
CPT/HCPCS: 99283

== ENCOUNTER 2024-09-11 17:14 | Emergency (ER) | payer OTHER ==
--- NOTE | 2024-09-11 17:37 | ED ---
Abdominal Pain HPI - General Stated Complaint: abd pain Time Seen by Provider: 09/11/24 17:37 Source: patient, family, RN notes reviewed Mode of arrival: ambulatory Limitations: no limitations - History of Present Illness Initial Comments: Quick note: 24-year-old female presented to the ER for evaluation of abdominal cramping. She believes this is Rene Piña. Patient states she is 22 weeks . She is following up with [facility]. History is unclear as patient is a poor historian. - Related Data Home Medications Medication Instructions Recorded Confirmed ARIPiprazole IM SYRINGE [Abilify 400 mg IM QMONTHLY 04/26/23 04/26/23 Maintena Syringe] Albuterol Sulfate [Albuterol 1 puff PO RT-Q4H PRN 04/26/23 02/04/24 Sulfate Hfa] Baclofen 10 mg PO BID PRN 04/26/23 02/04/24 Butalb/APAP/Caff 50-325-40Mg 1 tab PO BID PRN 04/26/23 02/04/24 [Fioricet 50-325-40] Ergocalciferol (Vitamin D2) 1,250 mcg PO Q7D 04/26/23 02/04/24 [Drisdol (50,000 Iu)] [place] Carbonate 600 mg PO HS 04/26/23 02/04/24 OLANZapine [ZyPREXA] 20 mg PO HS 04/26/23 04/26/23 Omeprazole [PriLOSEC] 20 mg PO DAILY 04/26/23 02/04/24 Previous Rx's Medication Instructions Recorded Divalproex ER [Depakote ER] 1,500 mg PO HS 30 Days #90 tab 08/28/22 FLUoxetine HCL [PROzac] 20 mg PO DAILY 30 Days #30 cap 08/28/22 OLANZapine [ZyPREXA] 5 mg PO DAILY 30 Days #30 tab 08/28/22 Prazosin [Minipress] 1 mg PO HS 30 Days #30 cap 08/28/22 Acetaminophen [Acetaminophen 8 hr] 650 mg PO Q8H PRN #21 tab 07/07/24 Allergies Allergy/AdvReac Type Severity Reaction Status Date / Time quetiapine [From Seroquel] Allergy Unknown Verified 09/11/24 18:14 Childhood Review of Systems ROS Statement: Those systems with pertinent positive or pertinent negative responses have been documented in the HPI. ROS Other: All systems not noted in ROS Statement are negative. Past Medical History Past Medical History: Asthma Additional Past Medical History / Comment(s): hypoglycemic, bipolar, adhd History of Any Multi-Drug Resistant Organisms: None Reported Past Surgical History: Ear Surgery, Orthopedic Surgery Additional Past Surgical History / Comment(s): eye surgery, foot surgery Past Psychological History: ADD/ADHD, Bipolar, PTSD Smoking Status: Vaper Past Alcohol Use History: None Reported Past Drug Use History: Marijuana - Past Family History familyi Family Medical History: Fibromyalgia, Osteoarthritis (OA) Additional Family Medical History / Comment(s): insomnia,, snoring, mental illness General Exam - General Exam Comments Initial Comments: Visual Physical Exam Vital signs reviewed General: Well-appearing, nontoxic, no acute distress. Head: Normocephalic, atraumatic Eyes: PERRLA, EOMI ENT: Airway patent Chest: Nonlabored breathing Skin: No visual rash, normal skin tone Neuro: Alert and oriented 3 Musculoskeletal: No gross abnormalities Course Vital Signs 09/11/24 18:10 Temperature 97.6 F Pulse Rate 63 Respiratory 18 Rate Blood Pressure 95/66 O2 Sat by Pulse 100 Oximetry Medical Decision Making - Medical Decision Making I performed the quick note portion of this chart. Electronically signed by Bety Bueno PA-C Was pt. sent in by a medical professional or institution (IRAIDA Wall, SIGN BUILDER SUPERVISOR, urgent care, hospital, or correction...) When possible be specific @ -No Did you speak to anyone other than the patient for history (EMS, parent, family, police, friend...)? What history was obtained from this source @ -Patient's significant other Did you review nursing and triage notes (agree or disagree)? Why? @ -I reviewed and agree with nursing and triage notes Were old charts reviewed (outside hosp., previous admission, EMS record, old EKG, old radiological studies, urgent care reports/EKG's, correction records)? Report findings @ -No old charts were reviewed Differential Diagnosis (chest pain, altered mental status, abdominal pain women, abdominal pain men, vaginal bleeding, weakness, fever, dyspnea, syncope, headache, dizziness, GI bleed, back pain, seizure, CVA, palpatations, mental health, musculoskeletal)? @ -Differential Abdominal Pain Women: Appendicitis, Cholecystitis, diverticulosis, ischemic bowel, pancreatitis, hepatitis, UTI, gastroenteritis, AAA, incarcerated hernia, bowel obstruction, constipation, inflammatory bowel, hepatitis, peptic ulcer disease, splenic infarction, perforated viscus, vulvitis, ovarian torsion, PID, kidney stone, placenta abruption, this is not meant to be an all-inclusive list EKG interpreted by me (3pts min.). @ -None done X-rays interpreted by me (1pt min.). @ -None done CT interpreted by me (1pt min.). @ -None done U/S interpreted by me (1pt. min.). @ -None done What testing was considered but not performed or refused? (CT, X-rays, U/S, labs)? Why? @ -None What meds were considered but not given or refused? Why? @ -None Did you discuss the management of the patient with other professionals (professionals i.e. , PA, SIGN BUILDER SUPERVISOR, lab, RT, psych nurse, social science analyst, aquatic biologist, teacher, staff air defense officer, mattress spring encaser)? Give summary @ -No Was smoking cessation discussed for >3mins.? @ -No Was critical care preformed (if so, how long)? @ -No Were there social determinants of health that impacted care today? How? (Homelessness, low income, unemployed, alcoholism, drug addiction, transportation, low edu. Level, literacy, decrease access to med. care, nursing home, rehab)? @ -No Was there de-escalation of care discussed even if they declined (Discuss DNR or withdrawal of care, Hospice)? DNR status @ -No What co-morbidities impacted this encounter? (DM, HTN, Smoking, COPD, CAD, Cancer, CVA, ARF, Chemo, Hep., AIDS, mental health diagnosis, sleep apnea, morbid obesity)? @ -None Was patient admitted / discharged? Hospital course, mention meds given and route, prescriptions, significant lab abnormalities, going to OR and other pertinent info. @ -Patient left AGAINST MEDICAL ADVICE. Patient is a 24-year-old female presented to the ER for abdominal cramping. Patient reports that she is approxi mately 22 weeks and feels like she is having Rene Piña contractions. She is following up at [facility]. Clear history is uncertain as patient is a poor historian. Patient seen as a quick note where laboratory studies obtained. CBC and CMP unremarkable. Serum hCG <2.4. Patient is not . Urinalysis with many bacteria sample is contaminated with 13 epithelial cells. Patient eloped the emergency department prior to completion of medical treatment. Undiagnosed new problem with uncertain prognosis? @ -No Drug Therapy requiring intensive monitoring for toxicity (Heparin, Nitro, Insulin, Cardizem)? @ -No Were any procedures done? @ -No Diagnosis/symptom? @ -AMA Acute, or Chronic, or Acute on Chronic? @ -N/A Uncomplicated (without systemic symptoms) or Complicated (systemic symptoms)? @ -N/A Side effects of treatment? @ -No Exacerbation, Progression, or Severe Exacerbation? @ -No Poses a threat to life or bodily function? How? (Chest pain, USA, [place], pneumonia, PE, COPD, DKA, ARF, appy, cholecystitis, CVA, Diverticulitis, Homicidal, Suicidal, threat to staff... and all critical care pts) @ -Unknown - Lab Data Result diagrams: 09/11/24 17:36 09/11/24 17:36 Lab Results 09/11/24 09/11/24 09/11/24 Range/Units 17:36 17:36 18:24 WBC 10.5 (3.8-10.6) k/uL RBC 4.69 (3.80-5.40) m/uL Hgb 14.3 (11.4-16.0) gm/dL Hct 43.7 (34.0-46.0) % MCV 93.3 (80.0-100.0) fL MCH 30.6 (25.0-35.0) pg MCHC 32.8 (31.0-37.0) g/dL RDW 13.3 (11.5-15.5) % Plt Count 255 (150-450) k/uL MPV 7.3 Neutrophils % 70 % Lymphocytes % 21 % Monocytes % 6 % Eosinophils % 1 % Basophils % 0 % Neutrophils # 7.4 (1.3-7.7) k/uL Lymphocytes # 2.1 (1.0-4.8) k/uL Monocytes # 0.6 (0-1.0) k/uL Eosinophils # 0.1 (0-0.7) k/uL Basophils # 0.0 (0-0.2) k/uL Sodium 140 (137-145) mmol/L Potassium 3.7 (3.5-5.1) mmol/L Chloride 105 (98-107) mmol/L Carbon Dioxide 24 (22-30) mmol/L Anion Gap 11 mmol/L BUN 10 (7-17) mg/dL Creatinine 0.63 (0.52-1.04) mg/dL Est GFR (CKD-EPI)AfAm >90 (>60 ml/min/1.73 sqM) Est GFR (CKD-EPI)NonAf >90 (>60 ml/min/1.73 sqM) Glucose 83 (74-99) mg/dL Calcium 9.7 (8.4-10.2) mg/dL Total Bilirubin 1.1 (0.2-1.3) mg/dL AST 17 (14-36) U/L ALT 18 (4-34) U/L Alkaline Phosphatase 70 (38-126) U/L Total Protein 7.0 (6.3-8.2) g/dL Albumin 4.6 (3.5-5.0) g/dL HCG, Quant <2.4 mIU/mL Urine Color Yellow Urine Appearance Cloudy H (Clear) Urine pH 6.5 (5.0-8.0) Ur Specific [place] 1.017 (1.001-1.035) Urine Protein Negative (Negative) Urine Glucose (UA) Negative (Negative) Urine Ketones Trace H (Negative) Urine Blood Negative (Negative) Urine Nitrite Negative (Negative) Urine Bilirubin Negative (Negative) Urine Urobilinogen 6.0 (<2.0) mg/dL Ur Leukocyte Esterase Negative (Negative) Urine RBC 1 (0-5) /hpf Urine WBC 5 (0-5) /hpf Ur Squamous Epith Cells 13 H (0-4) /hpf Urine Bacteria Many H (None) /hpf Urine Mucus Many H (None) /hpf Urine HCG, Qual (Not Detectd) 09/11/24 Range/Units 18:24 WBC (3.8-10.6) k/uL RBC (3.80-5.40) m/uL Hgb (11.4-16.0) gm/dL Hct (34.0-46.0) % MCV (80.0-100.0) fL MCH (25.0-35.0) pg MCHC (31.0-37.0) g/dL RDW (11.5-15.5) % Plt Count (150-450) k/uL MPV Neutrophils % % Lymphocytes % % Monocytes % % Eosinophils % % Basophils % % Neutrophils # (1.3-7.7) k/uL Lymphocytes # (1.0-4.8) k/uL Monocytes # (0-1.0) k/uL Eosinophils # (0-0.7) k/uL Basophils # (0-0.2) k/uL Sodium (137-145) mmol/L Potassium (3.5-5.1) mmol/L Chloride (98-107) mmol/L Carbon Dioxide (22-30) mmol/L Anion Gap mmol/L BUN (7-17) mg/dL Creatinine (0.52-1.04) mg/dL Est GFR (CKD-EPI)AfAm (>60 ml/min/1.73 sqM) Est GFR (CKD-EPI)NonAf (>60 ml/min/1.73 sqM) Glucose (74-99) mg/dL Calcium (8.4-10.2) mg/dL Total Bilirubin (0.2-1.3) mg/dL AST (14-36) U/L ALT (4-34) U/L Alkaline Phosphatase (38-126) U/L Total Protein (6.3-8.2) g/dL Albumin (3.5-5.0) g/dL HCG, Quant mIU/mL Urine Color Urine Appearance (Clear) Urine pH (5.0-8.0) Ur Specific [place] (1.001-1.035) Urine Protein (Negative) Urine Glucose (UA) (Negative) Urine Ketones (Negative) Urine Blood (Negative) Urine Nitrite (Negative) Urine Bilirubin (Negative) Urine Urobilinogen (<2.0) mg/dL Ur Leukocyte Esterase (Negative) Urine RBC (0-5) /hpf Urine WBC (0-5) /hpf Ur Squamous Epith Cells (0-4) /hpf Urine Bacteria (None) /hpf Urine Mucus (None) /hpf Urine HCG, Qual Not Detected (Not Detectd) Disposition Clinical Impression: Left against medical advice Disposition: LEFT AGAINST MEDICAL ADVICE Condition: Undetermined Referrals: Armand Leavitt [Primary Care Provider] - 1-2 days Time of Disposition: 10:26
[2024-09-11 18:14] VITALS: BP 95/66; PULSE 63; RESP 18; TEMP 97.6
[2024-09-11 18:52] LABS: Appearance,Urine Cloudy (Clear); Bacteria,Urine Many /hpf; Bilirubin,Urine Negative (Negative); Blood,Urine Negative (Negative); Color,Urine Yellow; Glucose,Urine (UA) Negative (Negative); Ketones,Urine Trace (Negative); Leukocyte Esterase,Urine Negative (Negative); Mucus,Urine Many /hpf; Nitrite,Urine Negative (Negative); PH, Urine 6.5 (5.0-8.0); Protein,Urine Negative (Negative); RBC,Urine 1 /hpf (0-5); Specific Gravity,Urine 1.017 (1.001-1.035); Squamous Epithelial Cell,Urine 13 /hpf (0-4); WBC,Urine 5 /hpf (0-5)
[2024-09-11 19:50] LABS: Basophils % (A) 0 %; Eosinophils # (A) 0.1 k/uL (0-0.7); Eosinophils % (A) 1 %; HCT 43.7 % (34.0-46.0); HGB 14.3 gm/dL (11.4-16.0); Lymphocytes # (A) 2.1 k/uL (1.0-4.8); Lymphocytes % (A) 21 %; MCH 30.6 pg (25.0-35.0); MCHC 32.8 g/dL (31.0-37.0); MCV 93.3 fL (80.0-100.0); Mean Platelet Volume 7.3; Monocytes # (A) 0.6 k/uL (0-1.0); Monocytes % (A) 6 %; Neutrophils # (A) 7.4 k/uL (1.3-7.7); Neutrophils % (A) 70 %; Platelet Count 255 k/uL (150-450); RBC 4.69 m/uL (3.80-5.40); RDW 13.3 % (11.5-15.5); WBC 10.5 k/uL (3.8-10.6)
[2024-09-11 19:52] LABS: ALT 18 U/L (4-34); AST 17 U/L (14-36); African American GFR (CKD) >90 (>60 ml/min/1.73 sqM); Albumin 4.6 g/dL (3.5-5.0); Alkaline Phosphatase 70 U/L (38-126); Anion Gap 11 mmol/L; Blood Urea Nitrogen 10 mg/dL (7-17); Calcium 9.7 mg/dL (8.4-10.2); Carbon Dioxide 24 mmol/L (22-30); Chloride 105 mmol/L (98-107); Glucose 83 mg/dL (74-99); Non-African American GFR(CKD) >90 (>60 ml/min/1.73 sqM); Potassium 3.7 mmol/L (3.5-5.1); Sodium 140 mmol/L (137-145); Total Bilirubin 1.1 mg/dL (0.2-1.3)
[2024-09-11 20:08] LABS: HCG,Quantitative Serum <2.4 mIU/mL
== END 2024-09-11 21:24 | disposition left against medical advice (07) ==
LOC: EC 17:14
DX: O26.892 Other specified pregnancy related conditions, second trimester (principal); R10.9 Unspecified abdominal pain; O99.332 Smoking (tobacco) complicating pregnancy, second trimester; F17.290 Nicotine dependence, other tobacco product, uncomplicated; Z53.29 Procedure and treatment not carried out because of patient's decision for other reasons; Z88.8 Allergy status to other drugs, medicaments and biological substances; Z3A.22 22 weeks gestation of pregnancy
CPT/HCPCS: 36415; 80053; 81001; 81025; 84702; 85025; 99284

== ENCOUNTER 2024-09-18 20:48 | Emergency (ER) | payer OTHER ==
--- NOTE | 2024-09-18 21:24 | ED ---
Psych HPI <Sheree Sierra Yanet - Last Filed: 09/30/24 22:20> - General Source: patient Mode of arrival: ambulatory - History of Present Illness MD Complaint: other Onset/Timin -: hour(s) Associated Psychiatric Symptoms: none History of same: Yes Improves With: none Worsens With: none Associated Symptoms: denies other symptoms <Baljeet Perry - Last Filed: 10/10/24 21:08> - General Chief Complaint: Psychiatric Symptoms Stated Complaint: LE Pick-up Order Time Seen by Provider: 09/18/24 20:59 - History of Present Illness Initial Comments: This patient is a 24-year-old woman who is brought in by law enforcement personnel in relation to a pickup order to have psychiatric evaluation. The patient states that she has been feeling stable she denies any suicidal or homicidal ideation. (Baljeet Perry) - Related Data Home Medications Medication Instructions Recorded Confirmed ARIPiprazole IM SYRINGE [Abilify 400 mg IM QMONTHLY 04/26/23 04/26/23 Maintena Syringe] Albuterol Sulfate [Albuterol 1 puff PO RT-Q4H PRN 04/26/23 02/04/24 Sulfate Hfa] Baclofen 10 mg PO BID PRN 04/26/23 02/04/24 Butalb/APAP/Caff 50-325-40Mg 1 tab PO BID PRN 04/26/23 02/04/24 [Fioricet 50-325-40] Ergocalciferol (Vitamin D2) 1,250 mcg PO Q7D 04/26/23 02/04/24 [Drisdol (50,000 Iu)] [place] Carbonate 600 mg PO HS 04/26/23 02/04/24 OLANZapine [ZyPREXA] 20 mg PO HS 04/26/23 04/26/23 Omeprazole [PriLOSEC] 20 mg PO DAILY 04/26/23 02/04/24 Previous Rx's Medication Instructions Recorded Divalproex ER [Depakote ER] 1,500 mg PO HS 30 Days #90 tab 08/28/22 FLUoxetine HCL [PROzac] 20 mg PO DAILY 30 Days #30 cap 08/28/22 OLANZapine [ZyPREXA] 5 mg PO DAILY 30 Days #30 tab 08/28/22 Prazosin [Minipress] 1 mg PO HS 30 Days #30 cap 08/28/22 Acetaminophen [Acetaminophen 8 hr] 650 mg PO Q8H PRN #21 tab 07/07/24 Allergies Allergy/AdvReac Type Severity Reaction Status Date / Time quetiapine [From Seroquel] Allergy Unknown Verified 09/18/24 20:56 Childhood Review of Systems ROS Other: All systems not noted in ROS Statement are negative. <Sheree Sierra - Last Filed: 09/30/24 22:20> ROS Other: All systems not noted in ROS Statement are negative. Constitutional: Denies: fever Respiratory: Denies: cough, dyspnea Cardiovascular: Denies: chest pain, palpitations Gastrointestinal: Denies: abdominal pain, nausea, vomiting, diarrhea Genitourinary: Denies: dysuria, hematuria Musculoskeletal: Denies: back pain Skin: Denies: rash Neurological: Denies: headache, confusion Psychiatric: Denies: depression, auditory hallucinations, visual hallucinations, homicidal thoughts, suicidal thoughts <Baljeet Perry - Last Filed: 10/10/24 21:08> ROS Statement: Those systems with pertinent positive or pertinent negative responses have been documented in the HPI. Past Medical History Past Medical History: Asthma Additional Past Medical History / Comment(s): hypoglycemic, bipolar, adhd History of Any Multi-Drug Resistant Organisms: None Reported Past Surgical History: Ear Surgery, Orthopedic Surgery Additional Past Surgical History / Comment(s): eye surgery, foot surgery Past Psychological History: ADD/ADHD, Bipolar, PTSD Smoking Status: Vaper Past Alcohol Use History: None Reported Past Drug Use History: Marijuana - Past Family History familyi Family Medical History: Fibromyalgia, Osteoarthritis (OA) Additional Family Medical History / Comment(s): insomnia,, snoring, mental illness <VickyBaljeet - Last Filed: 10/10/24 21:08> General Exam General appearance: alert, in no apparent distress Head exam: Present: atraumatic, normocephalic Eye exam: Present: normal appearance. Absent: scleral icterus, conjunctival injection Neck exam: Present: normal inspection Respiratory exam: Present: normal lung sounds bilaterally. Absent: respiratory distress, wheezes, rales, rhonchi, stridor, accessory muscle use Cardiovascular Exam: Present: regular rate, normal rhythm, normal heart sounds. Absent: systolic murmur, diastolic murmur, rubs, gallop GI/Abdominal exam: Present: soft. Absent: distended, tenderness, guarding, rebound, rigid, mass Extremities exam: Present: normal inspection, normal capillary refill. Absent: pedal edema, calf tenderness Back exam: Present: normal inspection. Absent: CVA tenderness (R), CVA tenderness (L) Neurological exam: Present: alert Psychiatric exam: Absent: depressed, agitated, flat affect, manic, homicidal ideation, suicidal ideation Skin exam: Present: warm, dry, intact, normal color. Absent: rash <Baljeet Perry - Last Filed: 10/10/24 21:08> Course Vital Signs 09/18/24 09/18/24 20:53 23:33 Temperature 98.0 F 98.2 F Pulse Rate 74 89 Respiratory 18 16 Rate Blood Pressure 126/69 106/66 O2 Sat by Pulse 98 99 Oximetry Medical Decision Making <Sheree Sierra - Last Filed: 09/30/24 22:20> <Baljeet Perry - Last Filed: 10/10/24 21:08> - Medical Decision Making Was patient admitted / discharged? Hospital course, mention meds given and route, prescriptions, significant lab abnormalities, going to OR and other pertinent info. @ -Patient was signed out to me pending EPS evaluation. EPS deemed that the patient is stable for discharge home. She does have an appointment with [facility] tomorrow Undiagnosed new problem with uncertain prognosis? @ -No Drug Therapy requiring intensive monitoring for toxicity (Heparin, Nitro, Insulin, Cardizem)? @ -No Were any procedures done? @ -No Diagnosis/symptom? @ -Depression, bipolar disorder Acute, or Chronic, or Acute on Chronic? @ -Acute Uncomplicated (without systemic symptoms) or Complicated (systemic symptoms)? @ -Complicated Side effects of treatment? @ -No Exacerbation, Progression, or Severe Exacerbation? @ -No Poses a threat to life or bodily function? How? (Chest pain, [place], [place], pneumonia, PE, COPD, DKA, ARF, appy, cholecystitis, CVA, Diverticulitis, Homicidal, Suicidal, threat to staff... and all critical care pts) @ -No (Sheree Sierra) Was pt. sent in by a medical professional or institution (, PA, SUPERVISOR CASE LOADING, urgent care, hospital, or long term...) When possible be specific @ -[No] Did you speak to anyone other than the patient for history (EMS, parent, family, police, friend...)? What history was obtained from this source @ -[No] Did you review nursing and triage notes (agree or disagree)? Why? @ -[I reviewed and agree with nursing and triage notes] Were old charts reviewed (outside hosp., previous admission, EMS record, old EKG, old radiological studies, urgent care reports/EKG's, long term records)? Report findings @ -[No old charts were reviewed] Differential Diagnosis (chest pain, altered mental status, abdominal pain women, abdominal pain men, vaginal bleeding, weakness, fever, dyspnea, syncope, headache, dizziness, GI bleed, back pain, seizure, CVA, palpatations, mental health, musculoskeletal)? @ -[Differential Mental Health Depression, anxiety, bipolar, psychosis, schizophrenia, borderline personality, situational depression, adjustment disorder, behavioral disorder, brain tumor, malingering, substance abuse, encephalopathy, medication reaction, dementia, hypothyroidism, degenerative neurologic disorder, lupus.... This is not meant to be all-inclusive list EKG interpreted by me (3pts min.). @ -[As above] X-rays interpreted by me (1pt min.). @ -[None done] CT interpreted by me (1pt min.). @ -[None done] U/S interpreted by me (1pt. min.). @ -[None done] What testing was considered but not performed or refused? (CT, X-rays, U/S, labs)? Why? @ -[None] What meds were considered but not given or refused? Why? @ -[None] Did you discuss the management of the patient with other professionals (professionals i.e. , PA, SUPERVISOR CASE LOADING, lab, RT, psych nurse, social sciences chair, senior accountant cpa, teacher, real estate loan officer, manager case management)? Give summary @ -[No] Was smoking cessation discussed for >3mins.? @ -[No] Was critical care preformed (if so, how long)? @ -[No] Were there social determinants of health that impacted care today? How? (Homelessness, low income, unemployed, alcoholism, drug addiction, transportation, low edu. Level, literacy, decrease access to med. care, usp, rehab)? @ -[No] Was there de-escalation of care discussed even if they declined (Discuss DNR or withdrawal of care, Hospice)? DNR status @ -[No] What co-morbidities impacted this encounter? (DM, HTN, Smoking, COPD, CAD, Cancer, CVA, ARF, Chemo, Hep., AIDS, mental health diagnosis, sleep apnea, morbid obesity)? @ -[None] Was patient admitted / discharged? Hospital course, mention meds given and route, prescriptions, significant lab abnormalities, going to OR and other pertinent info. @ -[Patient is a 24-year-old woman brought to have psychiatric evaluation. The patient is pending EPS evaluation at time of shift change and signed out to the following physician (Baljeet Perry) Disposition Is patient prescribed a controlled substance at d/c from ED?: No Time of Disposition: 23:09 <Sheree Sierra - Last Filed: 09/30/24 22:20> <Baljeet Perry - Last Filed: 10/10/24 21:08> Clinical Impression: Bipolar disorder, unspecified Disposition: HOME SELF-CARE Condition: Stable Instructions (If sedation given, give patient instructions): Bipolar Disorder (ED) Referrals: Armand Leavitt [Primary Care Provider] - 1-2 days
[2024-09-18 23:46] VITALS: BP 106/66; PULSE 89; RESP 16; TEMP 98.2
== END 2024-09-18 23:45 | disposition home or self-care (01) ==
LOC: EC 20:48
DX: F32.A Depression, unspecified (principal); F17.290 Nicotine dependence, other tobacco product, uncomplicated; Z88.8 Allergy status to other drugs, medicaments and biological substances
CPT/HCPCS: 82075; 99285

== ENCOUNTER 2024-09-21 16:32 | Emergency (ER) | payer OTHER ==
--- NOTE | 2024-09-21 17:39 | XR ---
EXAMINATION TYPE: XR chest 2V DATE OF EXAM: 09/21/2024 5:34 PM COMPARISON: None. CLINICAL INDICATION: Female, 24 years old with history of SOB; PHH TECHNIQUE: XR chest 2V Frontal and lateral views of the chest. FINDINGS: Lungs/Pleura: There is no evidence of pleural effusion, focal consolidation, or pneumothorax. Pulmonary vascularity: Unremarkable. Heart/mediastinum: Cardiomediastinal silhouette is unremarkable. Musculoskeletal: No acute osseous pathology. Other findings: None IMPRESSION: No acute cardiopulmonary disease/process. [facility], , 09/21/2024 5:37 PM
--- NOTE | 2024-09-21 17:57 | ED ---
SOB HPI - General Chief Complaint: Shortness of Breath Stated Complaint: SOB Time Seen by Provider: 09/21/24 16:45 Source: patient, RN notes reviewed Mode of arrival: ambulatory Limitations: no limitations - History of Present Illness Initial Comments: This is a 24-year-old female presenting with possible gas exposure occurring earlier today. Patient endorses SOB/dyspnea, reproducible, recurring chest pain that worsens with inhalation, foot/hand paresthesia since discovery of possible gas leak exposure. Denies AMS, cyanosis, ALOC, hemoptysis, excessive secretions. MD Complaint: shortness of breath Onset/Timin -: days(s) - Related Data Home Medications Medication Instructions Recorded Confirmed ARIPiprazole IM SYRINGE [Abilify 400 mg IM QMONTHLY 04/26/23 04/26/23 Maintena Syringe] Albuterol Sulfate [Albuterol 1 puff PO RT-Q4H PRN 04/26/23 02/04/24 Sulfate Hfa] Baclofen 10 mg PO BID PRN 04/26/23 02/04/24 Butalb/APAP/Caff 50-325-40Mg 1 tab PO BID PRN 04/26/23 02/04/24 [Fioricet 50-325-40] Ergocalciferol (Vitamin D2) 1,250 mcg PO Q7D 04/26/23 02/04/24 [Drisdol (50,000 Iu)] [place] Carbonate 600 mg PO HS 04/26/23 02/04/24 OLANZapine [ZyPREXA] 20 mg PO HS 04/26/23 04/26/23 Omeprazole [PriLOSEC] 20 mg PO DAILY 04/26/23 02/04/24 Previous Rx's Medication Instructions Recorded Divalproex ER [Depakote ER] 1,500 mg PO HS 30 Days #90 tab 08/28/22 FLUoxetine HCL [PROzac] 20 mg PO DAILY 30 Days #30 cap 08/28/22 OLANZapine [ZyPREXA] 5 mg PO DAILY 30 Days #30 tab 08/28/22 Prazosin [Minipress] 1 mg PO HS 30 Days #30 cap 08/28/22 Acetaminophen [Acetaminophen 8 hr] 650 mg PO Q8H PRN #21 tab 07/07/24 Allergies Allergy/AdvReac Type Severity Reaction Status Date / Time quetiapine [From Seroquel] Allergy Unknown Verified 09/18/24 20:56 Childhood Review of Systems ROS Statement: Those systems with pertinent positive or pertinent negative responses have been documented in the HPI. ROS Other: All systems not noted in ROS Statement are negative. Past Medical History Past Medical History: Asthma Additional Past Medical History / Comment(s): hypoglycemic, bipolar, adhd History of Any Multi-Drug Resistant Organisms: None Reported Past Surgical History: Ear Surgery, Orthopedic Surgery Additional Past Surgical History / Comment(s): eye surgery, foot surgery Past Psychological History: ADD/ADHD, Bipolar, PTSD Smoking Status: Vaper Past Alcohol Use History: None Reported Past Drug Use History: Marijuana - Past Family History familyi Family Medical History: Fibromyalgia, Osteoarthritis (OA) Additional Family Medical History / Comment(s): insomnia,, snoring, mental illness General Exam Limitations: no limitations General appearance: alert, in no apparent distress Head exam: Present: atraumatic, normocephalic, normal inspection Eye exam: Present: normal appearance, PERRL, EOMI. Absent: scleral icterus, conjunctival injection, periorbital swelling ENT exam: Present: normal exam, normal oropharynx (Negative perioral cyanosis), mucous membranes moist Neck exam: Present: normal inspection. Absent: tenderness, meningismus, lymphadenopathy Respiratory exam: Present: normal lung sounds bilaterally. Absent: respiratory distress, wheezes, rales, rhonchi, stridor, accessory muscle use, decreased breath sounds, prolonged expiratory Cardiovascular Exam: Present: regular rate, normal rhythm, normal heart sounds. Absent: systolic murmur, diastolic murmur, rubs, gallop, clicks GI/Abdominal exam: Present: soft, normal bowel sounds. Absent: distended, tenderness, guarding, rebound, rigid Extremities exam: Present: normal inspection, full ROM, normal capillary refill, other (Distal hands/feet show no indication of cyanosis, pallor). Absent: tenderness, pedal edema, joint swelling, calf tenderness Back exam: Present: normal inspection Neurological exam: Present: alert, oriented X3, CN II-XII intact Psychiatric exam: Present: normal affect, normal mood Skin exam: Present: warm, dry, intact, normal color. Absent: rash Course Vital Signs 09/21/24 09/21/24 09/21/24 16:56 17:45 18:40 Temperature 97.6 F 97.8 F Pulse Rate 58 L 62 Respiratory 18 20 17 Rate Blood Pressure 99/66 100/68 O2 Sat by Pulse 95 97 Oximetry Medical Decision Making - Medical Decision Making Was pt. sent in by a medical professional or institution (IRAIDA Wall, SECURITIES AND REAL ESTATE DIRECTOR, urgent care, hospital, or long term...) When possible be specific @ -No Did you speak to anyone other than the patient for history (EMS, parent, family, police, friend...)? What history was obtained from this source @ -No Did you review nursing and triage notes (agree or disagree)? Why? @ -I reviewed and agree with nursing and triage notes Were old charts reviewed (outside hosp., previous admission, EMS record, old EKG, old radiological studies, urgent care reports/EKG's, long term records)? Report findings @ -No old charts were reviewed Differential Diagnosis (chest pain, altered mental status, abdominal pain women, abdominal pain men, vaginal bleeding, weakness, fever, dyspnea, syncope, headache, dizziness, GI bleed, back pain, seizure, CVA, palpatations, mental health, musculoskeletal)? @ -Differential Dyspnea: Coronary syndrome, arrhythmia, tamponade, asthma, COPD, pulmonary embolism, pneumonia, pneumothorax, pulmonary effusion, anaphylaxis, diabetic ketoacidosis, flailed chest, pulmonary contusion, diaphragmatic rupture, anemia, neuromuscular, this is not meant to be an all-inclusive list. EKG interpreted by me (3pts min.). @ -Not done X-rays interpreted by me (1pt min.). @ -CXR shows no acute cardiopulmonary process CT interpreted by me (1pt min.). @ -None done U/S interpreted by me (1pt. min.). @ -None done What testing was considered but not performed or refused? (CT, X-rays, U/S, labs)? Why? @ -None What meds were considered but not given or refused? Why? @ -None Did you discuss the management of the patient with other professionals (pr ofessionals i.e. IRAIDA Wall, SECURITIES AND REAL ESTATE DIRECTOR, lab, RT, psych nurse, certified social workers in health care, fast food fry cook, teacher, executive officer special warfare team, executive kitchen manager)? Give summary @ -No Was smoking cessation discussed for >3mins.? @ -No Was critical care preformed (if so, how long)? @ -No Were there social determinants of health that impacted care today? How? (Homelessness, low income, unemployed, alcoholism, drug addiction, transportation, low edu. Level, literacy, decrease access to med. care, retirement, rehab)? @ -No Was there de-escalation of care discussed even if they declined (Discuss DNR or withdrawal of care, Hospice)? DNR status @ -No What co-morbidities impacted this encounter? (DM, HTN, Smoking, COPD, CAD, Cancer, CVA, ARF, Chemo, Hep., AIDS, mental health diagnosis, sleep apnea, morbid obesity)? @ -None Was patient admitted / discharged? Hospital course, mention meds given and route, prescriptions, significant lab abnormalities, going to OR and other pertinent info. @ -Cepheid test negative. CXR shows no acute cardiopulmonary process. Patient provided IM Solu-Medrol. No concerning findings on physical exam. Advised follow-up with PCP for any ongoing symptoms in the next 24-[address] Discussed patient with Dr. Perry. Undiagnosed new problem with uncertain prognosis? @ -No Drug Therapy requiring intensive monitoring for toxicity (Heparin, Nitro, Insulin, Cardizem)? @ -No Were any procedures done? @ -No Diagnosis/symptom? @ -Aerosolized gas exposure/inhalation Acute, or Chronic, or Acute on Chronic? @ -Acute Uncomplicated (without systemic symptoms) or Complicated (systemic symptoms)? @ -Uncomplicated Side effects of treatment? @ -No Exacerbation, Progression, or Severe Exacerbation? @ -No Poses a threat to life or bodily function? How? (Chest pain, [place], [place], pneumonia, PE, COPD, DKA, ARF, appy, cholecystitis, CVA, Diverticulitis, Homicidal, Suicidal, threat to staff... and all critical care pts) @ -No - Lab Data Lab Results 09/21/24 Range/Units 17:15 Influenza Type A (PCR) Not Detected (Not Detectd) Influenza Type B (PCR) Not Detected (Not Detectd) RSV (PCR) Not Detected (Not Detectd) SARS-CoV-2 (PCR) Not Detected (Not Detectd) Disposition Clinical Impression: Bronchitis, Pleuritic chest pain Disposition: HOME SELF-CARE Condition: Good Instructions (If sedation given, give patient instructions): Pleurisy (ED), Acute Bronchitis (ED) Is patient prescribed a controlled substance at d/c from ED?: No Referrals: Armand Leavitt [Primary Care Provider] - 1-2 days Time of Disposition: 17:58
[2024-09-21] MEDS: methylPREDNISolone SOD SUCCI 125 MG/2 ML VIAL IM ONE (18:16)
[2024-09-21 18:17] LABS: Influenza A Not Detected (Not Detectd); Influenza B Not Detected (Not Detectd); RSV Not Detected (Not Detectd)
[2024-09-21 18:42] VITALS: BP 100/68; PULSE 62; RESP 17; TEMP 97.8
== END 2024-09-21 18:40 | disposition home or self-care (01) ==
LOC: EC 16:32
DX: J40 Bronchitis, not specified as acute or chronic (principal); R07.81 Pleurodynia; F17.290 Nicotine dependence, other tobacco product, uncomplicated; Z88.8 Allergy status to other drugs, medicaments and biological substances
CPT/HCPCS: 87636; 71046; 99285; 96372; J2919

== ENCOUNTER 2024-10-12 06:04 | Emergency (ER) | payer OTHER ==
[2024-10-12 07:21] LABS: Appearance,Urine Clear (Clear); Bacteria,Urine Rare /hpf; Bilirubin,Urine Negative (Negative); Blood,Urine Negative (Negative); Color,Urine Light Yellow; Glucose,Urine (UA) Negative (Negative); Ketones,Urine Negative (Negative); Leukocyte Esterase,Urine Moderate (Negative); Mucus,Urine Rare /hpf; Nitrite,Urine Negative (Negative); PH, Urine 6.5 (5.0-8.0); Protein,Urine Negative (Negative); RBC,Urine 1 /hpf (0-5); Specific Gravity,Urine 1.007 (1.001-1.035); Squamous Epithelial Cell,Urine 3 /hpf (0-4); Urobilinogen,Urine <2.0 mg/dL (<2.0); WBC,Urine 39 /hpf (0-5)
[2024-10-12 07:29] LABS: ALT 19 U/L (4-34); AST 18 U/L (14-36); African American GFR (CKD) >90 (>60 ml/min/1.73 sqM); Albumin 4.8 g/dL (3.5-5.0); Alkaline Phosphatase 66 U/L (38-126); Anion Gap 9 mmol/L; Blood Urea Nitrogen 10 mg/dL (7-17); Carbon Dioxide 26 mmol/L (22-30); Chloride 103 mmol/L (98-107); Glucose 86 mg/dL (74-99); Non-African American GFR(CKD) >90 (>60 ml/min/1.73 sqM); Potassium 4.5 mmol/L (3.5-5.1); Sodium 138 mmol/L (137-145); Total Bilirubin 1.7 mg/dL (0.2-1.3); Total Protein 7.5 g/dL (6.3-8.2)
[2024-10-12 07:31] LABS: Basophils # (A) 0.1 k/uL (0-0.2); Basophils % (A) 1 %; Eosinophils # (A) 0.3 k/uL (0-0.7); Eosinophils % (A) 4 %; HCT 47.9 % (34.0-46.0); Lymphocytes # (A) 2.9 k/uL (1.0-4.8); Lymphocytes % (A) 34 %; MCH 30.8 pg (25.0-35.0); MCHC 33.3 g/dL (31.0-37.0); MCV 92.4 fL (80.0-100.0); Mean Platelet Volume 8.2; Monocytes # (A) 0.6 k/uL (0-1.0); Monocytes % (A) 8 %; Neutrophils # (A) 4.4 k/uL (1.3-7.7); Neutrophils % (A) 52 %; Platelet Count 356 k/uL (150-450); RBC 5.19 m/uL (3.80-5.40); WBC 8.4 k/uL (3.8-10.6)
--- NOTE | 2024-10-12 07:33 | ED ---
General Adult HPI - General Chief complaint: Seizure Stated complaint: seizures Time Seen by Provider: 10/12/24 06:09 Source: patient, EMS, RN notes reviewed Mode of arrival: EMS Limitations: no limitations - History of Present Illness Initial comments: 24-year-old with history of ADHD and bipolar presents emergency room via EMS with concerns for possible seizure. Patient is an extremely poor historian. patient states that she was laying in bed where she had a shaking type of movement of her total body. This activity was unwitnessed. says it lasted for a few moments. she denies fevers, chills, cough, congestion, chest pain, difficultly in breathing, abdominal pain, visual changes or disturbances. Patient denies loss of bladder bowel continence, biting her tongue, postictal.. Currently patient states that she is feeling okay. states she has a history of seizures however was never formally diagnosed and is not currently on/has not been prescribed anti-epileptics. - Related Data Home Medications Medication Instructions Recorded Confirmed ARIPiprazole IM SYRINGE [Abilify 400 mg IM QMONTHLY 04/26/23 04/26/23 Maintena Syringe] Albuterol Sulfate [Albuterol 1 puff PO RT-Q4H PRN 04/26/23 02/04/24 Sulfate Hfa] Baclofen 10 mg PO BID PRN 04/26/23 02/04/24 Butalb/APAP/Caff 50-325-40Mg 1 tab PO BID PRN 04/26/23 02/04/24 [Fioricet 50-325-40] Ergocalciferol (Vitamin D2) 1,250 mcg PO Q7D 04/26/23 02/04/24 [Drisdol (50,000 Iu)] [place] Carbonate 600 mg PO HS 04/26/23 02/04/24 OLANZapine [ZyPREXA] 20 mg PO HS 04/26/23 04/26/23 Omeprazole [PriLOSEC] 20 mg PO DAILY 04/26/23 02/04/24 Previous Rx's Medication Instructions Recorded Divalproex ER [Depakote ER] 1,500 mg PO HS 30 Days #90 tab 08/28/22 FLUoxetine HCL [PROzac] 20 mg PO DAILY 30 Days #30 cap 08/28/22 OLANZapine [ZyPREXA] 5 mg PO DAILY 30 Days #30 tab 08/28/22 Prazosin [Minipress] 1 mg PO HS 30 Days #30 cap 08/28/22 Acetaminophen [Acetaminophen 8 hr] 650 mg PO Q8H PRN #21 tab 07/07/24 Allergies Allergy/AdvReac Type Severity Reaction Status Date / Time quetiapine [From Seroquel] Allergy Unknown Verified 10/12/24 06:08 Childhood Review of Systems ROS Statement: Those systems with pertinent positive or pertinent negative responses have been documented in the HPI. ROS Other: All systems not noted in ROS Statement are negative. Past Medical History Past Medical History: Asthma Additional Past Medical History / Comment(s): hypoglycemic, bipolar, adhd History of Any Multi-Drug Resistant Organisms: None Reported Past Surgical History: Ear Surgery, Orthopedic Surgery Additional Past Surgical History / Comment(s): eye surgery, foot surgery Past Psychological History: ADD/ADHD, Bipolar, PTSD Smoking Status: Vaper Past Alcohol Use History: None Reported Past Drug Use History: Marijuana - Past Family History familyi Family Medical History: Fibromyalgia, Osteoarthritis (OA) Additional Family Medical History / Comment(s): insomnia,, snoring, mental illness General Exam Limitations: no limitations General appearance: alert, in no apparent distress ENT exam: Present: normal exam, mucous membranes moist Neck exam: Present: normal inspection. Absent: tenderness, meningismus, lymphadenopathy Respiratory exam: Present: normal lung sounds bilaterally. Absent: respiratory distress, wheezes, rales, rhonchi, stridor Cardiovascular Exam: Present: regular rate, normal rhythm, normal heart sounds. Absent: systolic murmur, diastolic murmur, rubs, gallop, clicks GI/Abdominal exam: Present: soft, normal bowel sounds. Absent: distended, tenderness, guarding, rebound, rigid Extremities exam: Present: normal inspection, full ROM, normal capillary refill. Absent: tenderness, pedal edema, joint swelling, calf tenderness Neurological exam: Present: alert, oriented X3, CN II-XII intact Course Vital Signs 10/12/24 10/12/24 06:06 08:17 Temperature 97.9 F 98.1 F Pulse Rate 59 L 63 Respiratory 18 20 Rate Blood Pressure 115/73 116/76 O2 Sat by Pulse 100 99 Oximetry Medical Decision Making - Medical Decision Making Was pt. sent in by a medical professional or institution (, PA, PRETZEL TWISTER, urgent care, hospital, or assisted...) When possible be specific @ -No Did you speak to anyone other than the patient for history (EMS, parent, family, police, friend...)? What history was obtained from this source @ -No Did you review nursing and triage notes (agree or disagree)? Why? @ -I reviewed and agree with nursing and triage notes Were old charts reviewed (outside hosp., previous admission, EMS record, old EKG, old radiological studies, urgent care reports/EKG's, assisted records)? Report findings @ -No old charts were reviewed Differential Diagnosis (chest pain, altered mental status, abdominal pain women, abdominal pain men, vaginal bleeding, weakness, fever, dyspnea, syncope, headache, dizziness, GI bleed, back pain, seizure, CVA, palpatations, mental health, musculoskeletal)? @ -Differential Seizure: Recurrent seizure disorder, febrile seizure, alcohol withdrawal, stimulants, meningitis, encephalitis, intercranial hemorrhage, intracranial tumor, stroke, eclampsia, thyrotoxicosis, hypocalcemia, hyponatremia, hypernatremia, hypomagnesemia, psychogenic, this is not meant to be an all-inclusive list. EKG interpreted by me (3pts min.). @ -none X-rays interpreted by me (1pt min.). @ -None done CT interpreted by me (1pt min.). @ -None done U/S interpreted by me (1pt. min.). @ -None done What testing was considered but not performed or refused? (CT, X-rays, U/S, labs)? Why? @ -None What meds were considered but not given or refused? Why? @ -None Did you discuss the management of the patient with other professionals (professionals i.e. , PA, PRETZEL TWISTER, lab, RT, psych nurse, social media marketing analyst, business lawyer, teacher, anti air warfare operations officer, grant manager)? Give summary @ -No Was smoking cessation discussed for >3mins.? @ -No Was critical care preformed (if so, how long)? @ -No Were there social determinants of health that impacted care today? How? (Homelessness, low income, unemployed, alcoholism, drug addiction, transportation, low edu. Level, literacy, decrease access to med. care, senior care, rehab)? @ -No Was there de-escalation of care discussed even if they declined (Discuss DNR or withdrawal of care, Hospice)? DNR status @ -No What co-morbidities impacted this encounter? (DM, HTN, Smoking, COPD, CAD, Cancer, CVA, ARF, Chemo, Hep., AIDS, mental health diagnosis, sleep apnea, morbid obesity)? @ -None Was patient admitted / discharged? Hospital course, mention meds given and route, prescriptions, significant lab abnormalities, going to OR and other perti nent info. @ -Discharge. 24-year-old female presenting with concerns of possible seizure. On history from patient is minimal clinical concern that seizure activity occurred. Overall patient is well-appearing and is not in a postictal state. Neurological examination completed with no acute deficits. Laboratory testing unremarkable. Urinalysis questionable for infection however sent for culture. Patient is stable for discharge. Case discussed with Dr. Sierra Undiagnosed new problem with uncertain prognosis? @ -No Drug Therapy requiring intensive monitoring for toxicity (Heparin, Nitro, In sulin, Cardizem)? @ -No Were any procedures done? @ -No Diagnosis/symptom? @ -myalgias Acute, or Chronic, or Acute on Chronic? @ -acute Uncomplicated (without systemic symptoms) or Complicated (systemic symptoms)? @ -uncomplicated Side effects of treatment? @ -No Exacerbation, Progression, or Severe Exacerbation? @ -No Poses a threat to life or bodily function? How? (Chest pain, USA, DC, pneumonia, PE, COPD, DKA, ARF, appy, cholecystitis, CVA, Diverticulitis, Homicidal, Suicidal, threat to staff... and all critical care pts) @ -No - Lab Data Result diagrams: 10/12/24 06:45 10/12/24 06:45 Lab Results 10/12/24 10/12/24 10/12/24 Range/Units 06:45 06:45 06:45 WBC 8.4 (3.8-10.6) k/uL RBC 5.19 (3.80-5.40) m/uL Hgb 16.0 (11.4-16.0) gm/dL Hct 47.9 H (34.0-46.0) % MCV 92.4 (80.0-100.0) fL MCH 30.8 (25.0-35.0) pg MCHC 33.3 (31.0-37.0) g/dL RDW 13.0 (11.5-15.5) % Plt Count 356 (150-450) k/uL MPV 8.2 Neutrophils % 52 % Lymphocytes % 34 % Monocytes % 8 % Eosinophils % 4 % Basophils % 1 % Neutrophils # 4.4 (1.3-7.7) k/uL Lymphocytes # 2.9 (1.0-4.8) k/uL Monocytes # 0.6 (0-1.0) k/uL Eosinophils # 0.3 (0-0.7) k/uL Basophils # 0.1 (0-0.2) k/uL Sodium (137-145) mmol/L Potassium (3.5-5.1) mmol/L Chloride (98-107) mmol/L Carbon Dioxide (22-30) mmol/L Anion Gap mmol/L BUN (7-17) mg/dL Creatinine (0.52-1.04) mg/dL Est GFR (CKD-EPI)AfAm (>60 ml/min/1.73 sqM) Est GFR (CKD-EPI)NonAf (>60 ml/min/1.73 sqM) Glucose (74-99) mg/dL Calcium (8.4-10.2) mg/dL Magnesium (1.6-2.3) mg/dL Total Bilirubin (0.2-1.3) mg/dL AST (14-36) U/L ALT (4-34) U/L Alkaline Phosphatase (38-126) U/L Total Protein (6.3-8.2) g/dL Albumin (3.5-5.0) g/dL Urine Color Light Yellow Urine Appearance Clear (Clear) Urine pH 6.5 (5.0-8.0) Ur Specific [place] 1.007 (1.001-1.035) Urine Protein Negative (Negative) Urine Glucose (UA) Negative (Negative) Urine Ketones Negative (Negative) Urine Blood Negative (Negative) Urine Nitrite Negative (Negative) Urine Bilirubin Negative (Negative) Urine Urobilinogen <2.0 (<2.0) mg/dL Ur Leukocyte Esterase Moderate H (Negative) Urine RBC 1 (0-5) /hpf Urine WBC 39 H (0-5) /hpf Ur Squamous Epith Cells 3 (0-4) /hpf Urine Bacteria Rare H (None) /hpf Urine Mucus Rare H (None) /hpf Urine HCG, Qual Not Detected (Not Detectd) 10/12/24 Range/Units 06:45 WBC (3.8-10.6) k/uL RBC (3.80-5.40) m/uL Hgb (11.4-16.0) gm/dL Hct (34.0-46.0) % MCV (80.0-100.0) fL MCH (25.0-35.0) pg MCHC (31.0-37.0) g/dL RDW (11.5-15.5) % Plt Count (150-450) k/uL MPV Neutrophils % % Lymphocytes % % Monocytes % % Eosinophils % % Basophils % % Neutrophils # (1.3-7.7) k/uL Lymphocytes # (1.0-4.8) k/uL Monocytes # (0-1.0) k/uL Eosinophils # (0-0.7) k/uL Basophils # (0-0.2) k/uL Sodium 138 (137-145) mmol/L Potassium 4.5 (3.5-5.1) mmol/L Chloride 103 (98-107) mmol/L Carbon Dioxide 26 (22-30) mmol/L Anion Gap 9 mmol/L BUN 10 (7-17) mg/dL Creatinine 0.63 (0.52-1.04) mg/dL Est GFR (CKD-EPI)AfAm >90 (>60 ml/min/1.73 sqM) Est GFR (CKD-EPI)NonAf >90 (>60 ml/min/1.73 sqM) Glucose 86 (74-99) mg/dL Calcium 10.0 (8.4-10.2) mg/dL Magnesium 2.0 (1.6-2.3) mg/dL Total Bilirubin 1.7 H (0.2-1.3) mg/dL AST 18 (14-36) U/L ALT 19 (4-34) U/L Alkaline Phosphatase 66 (38-126) U/L Total Protein 7.5 (6.3-8.2) g/dL Albumin 4.8 (3.5-5.0) g/dL Urine Color Urine Appearance (Clear) Urine pH (5.0-8.0) Ur Specific [place] (1.001-1.035) Urine Protein (Negative) Urine Glucose (UA) (Negative) Urine Ketones (Negative) Urine Blood (Negative) Urine Nitrite (Negative) Urine Bilirubin (Negative) Urine Urobilinogen (<2.0) mg/dL Ur Leukocyte Esterase (Negative) Urine RBC (0-5) /hpf Urine WBC (0-5) /hpf Ur Squamous Epith Cells (0-4) /hpf Urine Bacteria (None) /hpf Urine Mucus (None) /hpf Urine HCG, Qual (Not Detectd) Disposition Clinical Impression: Myalgia Disposition: HOME SELF-CARE Condition: Good Additional Instructions: Please return to the Emergency Department if symptoms worsen or any other concerns. Is patient prescribed a controlled substance at d/c from ED?: No Referrals: Armand Leavitt [Primary Care Provider] - 1-2 days Time of Disposition: 08:10
[2024-10-12 08:23] VITALS: BP 116/76; PULSE 63; RESP 20; TEMP 98.1
== END 2024-10-12 08:24 | disposition home or self-care (01) ==
LOC: EC 06:04
DX: M79.10 Myalgia, unspecified site (principal); F31.9 Bipolar disorder, unspecified; F90.9 Attention-deficit hyperactivity disorder, unspecified type; F17.290 Nicotine dependence, other tobacco product, uncomplicated; Z88.8 Allergy status to other drugs, medicaments and biological substances
CPT/HCPCS: 36415; 80053; 81001; 81025; 83735; 85025; 87086; 99285

== ENCOUNTER 2024-11-19 21:56 | Emergency (ER) | payer OTHER ==
[2024-11-19 22:17] VITALS: RESP 18
--- NOTE | 2024-11-19 23:49 | ED ---
General Adult HPI - General Chief complaint: Upper Respiratory Infection Stated complaint: Black mold exposure Time Seen by Provider: 11/19/24 22:06 Source: patient, RN notes reviewed Mode of arrival: ambulatory Limitations: no limitations - History of Present Illness Initial comments: This is a well-known 24-year-old female with history of asthma, ADHD and bipolar disorder presenting for black mold exposure. Patient states she spent [place] [employer] where black mold was discovered and also discovered black mold in the recently moved in apartment for the past 3 weeks. Endorses dyspnea, headache and fatigue x 3 weeks. Denies fever, chills, cough, hemoptysis, chest pain, abdominal pain, N/V/D. Onset/Timin -: week(s) Associated Symptoms: headaches, malaise, shortness of breath Treatments Prior to Arrival: none - Related Data Home Medications Medication Instructions Recorded Confirmed ARIPiprazole IM SYRINGE [Abilify 400 mg IM QMONTHLY 04/26/23 04/26/23 Maintena Syringe] Albuterol Sulfate [Albuterol 1 puff PO RT-Q4H PRN 04/26/23 02/04/24 Sulfate Hfa] Baclofen 10 mg PO BID PRN 04/26/23 02/04/24 Butalb/APAP/Caff 50-325-40Mg 1 tab PO BID PRN 04/26/23 02/04/24 [Fioricet 50-325-40] Ergocalciferol (Vitamin D2) 1,250 mcg PO Q7D 04/26/23 02/04/24 [Drisdol (50,000 Iu)] [place] Carbonate 600 mg PO HS 04/26/23 02/04/24 OLANZapine [ZyPREXA] 20 mg PO HS 04/26/23 04/26/23 Omeprazole [PriLOSEC] 20 mg PO DAILY 04/26/23 02/04/24 Previous Rx's Medication Instructions Recorded Divalproex ER [Depakote ER] 1,500 mg PO HS 30 Days #90 tab 08/28/22 FLUoxetine HCL [PROzac] 20 mg PO DAILY 30 Days #30 cap 08/28/22 OLANZapine [ZyPREXA] 5 mg PO DAILY 30 Days #30 tab 08/28/22 Prazosin [Minipress] 1 mg PO HS 30 Days #30 cap 08/28/22 Acetaminophen [Acetaminophen 8 hr] 650 mg PO Q8H PRN #21 tab 07/07/24 predniSONE 50 mg PO DAILY #5 tab 11/19/24 Allergies Allergy/AdvReac Type Severity Reaction Status Date / Time quetiapine [From Seroquel] Allergy Unknown Verified 10/12/24 06:08 Childhood Review of Systems ROS Statement: Those systems with pertinent positive or pertinent negative responses have been documented in the HPI. ROS Other: All systems not noted in ROS Statement are negative. Past Medical History Past Medical History: Asthma Additional Past Medical History / Comment(s): hypoglycemic, bipolar, adhd History of Any Multi-Drug Resistant Organisms: None Reported Past Surgical History: Ear Surgery, Orthopedic Surgery Additional Past Surgical History / Comment(s): eye surgery, foot surgery Past Psychological History: ADD/ADHD, Bipolar, PTSD Smoking Status: Vaper Past Alcohol Use History: None Reported Past Drug Use History: Marijuana - Past Family History familyi Family Medical History: Fibromyalgia, Osteoarthritis (OA) Additional Family Medical History / Comment(s): insomnia,, snoring, mental illness General Exam Limitations: no limitations General appearance: alert, in no apparent distress Head exam: Present: atraumatic, normocephalic, normal inspection Eye exam: Present: normal appearance, PERRL, EOMI. Absent: scleral icterus, conjunctival injection, periorbital swelling ENT exam: Present: normal exam, mucous membranes moist Neck exam: Present: normal inspection. Absent: tenderness, meningismus, lymphadenopathy Respiratory exam: Present: decreased breath sounds. Absent: respiratory distress, wheezes, rales, rhonchi, stridor, accessory muscle use, prolonged expiratory Cardiovascular Exam: Present: regular rate, normal rhythm, normal heart sounds. Absent: systolic murmur, diastolic murmur, rubs, gallop, clicks GI/Abdominal exam: Present: soft, normal bowel sounds. Absent: distended, tenderness, guarding, rebound, rigid Extremities exam: Present: normal inspection, full ROM, normal capillary refill. Absent: tenderness, pedal edema, joint swelling, calf tenderness Back exam: Present: normal inspection Neurological exam: Present: alert, oriented X3, CN II-XII intact Psychiatric exam: Present: normal affect, normal mood Skin exam: Present: warm, dry, intact, normal color. Absent: rash Course Vital Signs 11/19/24 11/20/24 22:14 00:23 Temperature 98.0 F 97.7 F Pulse Rate 60 71 Respiratory 18 18 Rate Blood Pressure 119/81 114/79 O2 Sat by Pulse 96 98 Oximetry Medical Decision Making - Medical Decision Making Was pt. sent in by a medical professional or institution (, [facility], NON DESTRUCTIVE TESTER, urgent care, hospital, or correction...) When possible be specific @ -No Did you speak to anyone other than the patient for history (EMS, parent, family, police, friend...)? What history was obtained from this source @ -No Did you review nursing and triage notes (agree or disagree)? Why? @ -I reviewed and agree with nursing and triage notes Were old charts reviewed (outside hosp., previous admission, EMS record, old EKG, old radiological studies, urgent care reports/EKG's, correction records)? Report findings @ -No old charts were reviewed Differential Diagnosis (chest pain, altered mental status, abdominal pain women, abdominal pain men, vaginal bleeding, weakness, fever, dyspnea, syncope, headache, dizziness, GI bleed, back pain, seizure, CVA, palpatations, mental health, musculoskeletal)? @ -Differential Dyspnea: Coronary syndrome, arrhythmia, tamponade, asthma, COPD, pulmonary embolism, pneumonia, pneumothorax, pulmonary effusion, anaphylaxis, diabetic ketoacidosis, flailed chest, pulmonary contusion, diaphragmatic rupture, anemia, neuromuscular, this is not meant to be an all-inclusive list. EKG interpreted by me (3pts min.). @ -Not done X-rays interpreted by me (1pt min.). @ -CXR shows no focal consolidation or acute cardiopulmonary process. CT interpreted by me (1pt min.). @ -None done U/S interpreted by me (1pt. min.). @ -None done What testing was considered but not performed or refused? (CT, X-rays, U/S, labs)? Why? @ -None What meds were considered but not given or refused? Why? @ -None Did you discuss the management of the patient with other professionals (professionals i.e. IRAIDA Wall, NON DESTRUCTIVE TESTER, lab, RT, psych nurse, director social welfare, editorial manager, teacher, correction officer reformatory, onsite case manager)? Give summary @ -No Was smoking cessation discussed for >3mins.? @ -No Was critical care preformed (if so, how long)? @ -No Were there social determinants of health that impacted care today? How? (Homelessness, low income, unemployed, alcoholism, drug addiction, transportation, low edu. Level, literacy, decrease access to med. care, shelter, rehab)? @ -No Was there de-escalation of care discussed even if they declined (Discuss DNR or withdrawal of care, Hospice)? DNR status @ -No What co-morbidities impacted this encounter? (DM, HTN, Smoking, COPD, CAD, Cancer, CVA, ARF, Chemo, Hep., AIDS, mental health diagnosis, sleep apnea, morbid obesity)? @ -None Was patient admitted / discharged? Hospital course, mention meds given and rou te, prescriptions, significant lab abnormalities, going to OR and other pertinent info. @ -CXR shows no focal consolidation or acute cardiopulmonary process. Patient provided IM Solu-Medrol and p.o. Tylenol/Motrin for dyspnea and headache respectively. Prednisone sent to patient's pharmacy. Advised contact professional for black mold removal in apartment to avoid further exposure. Di scussed patient with Dr. Tierney. Undiagnosed new problem with uncertain prognosis? @ -No Drug Therapy requiring intensive monitoring for toxicity (Heparin, Nitro, Insulin, Cardizem)? @ -No Were any procedures done? @ -No Diagnosis/symptom? @ -Bronchitis Acute, or Chronic, or Acute on Chronic? @ -Acute Uncomplicated (without systemic symptoms) or Complicated (systemic symptoms)? @ -Uncomplicated Side effects of treatment? @ -No Exacerbation, Progression, or Severe Exacerbation? @ -No Poses a threat to life or bodily function? How? (Chest pain, USA, MS, pneumonia, PE, COPD, DKA, ARF, appy, cholecystitis, CVA, Diverticulitis, Homicidal, Suicidal, threat to staff... and all critical care pts) @ -No Disposition Clinical Impression: Bronchitis Disposition: HOME SELF-CARE Condition: Good Instructions (If sedation given, give patient instructions): Acute Bronchitis (ED) Additional Instructions: Alternate Tylenol/Motrin every 4 hours for pain. Call professional to clear apartment of black mold. Follow-up with primary care for any ongoing difficulty breathing. Prescriptions: predniSONE 50 mg PO DAILY #5 tab Is patient prescribed a controlled substance at d/c from ED?: No Referrals: None,Stated [Primary Care Provider] - 1-2 days Jaun Hidalgo DO [STAFF PHYSICIAN] - 1-2 days Time of Disposition: 23:49
[2024-11-20] MEDS: methylPREDNISolone SOD SUCCI 125 MG/2 ML VIAL IM ONE (00:08)
[2024-11-20] MEDS: ACETAMINOPHEN TAB 500 MG TAB PO STA (00:11)
[2024-11-20 00:26] VITALS: BP 114/79; PULSE 71; TEMP 97.7
--- NOTE | 2024-11-20 00:54 | XR ---
EXAM: XR Chest, 2 Views CLINICAL HISTORY: ITS.REASON XR Reason: Black mold exposure TECHNIQUE: Frontal and lateral views of the chest. COMPARISON: No relevant prior studies available. FINDINGS: Lungs: Unremarkable. No consolidation. Pleural space: Unremarkable. No pneumothorax. Heart: Unremarkable. No cardiomegaly. Mediastinum: Unremarkable. Bones/joints: Unremarkable. IMPRESSION: No consolidation.
== END 2024-11-20 00:48 | disposition home or self-care (01) ==
LOC: EC 21:56
DX: J40 Bronchitis, not specified as acute or chronic (principal); F31.9 Bipolar disorder, unspecified; Z77.120 Contact with and (suspected) exposure to mold (toxic); F17.290 Nicotine dependence, other tobacco product, uncomplicated; Z88.8 Allergy status to other drugs, medicaments and biological substances
CPT/HCPCS: 71046; 99283; 96372; J2919

== ENCOUNTER 2024-12-01 07:00 | Emergency (ER) | payer OTHER ==
[2024-12-01 07:05] VITALS: TEMP 98.2
[2024-12-01 09:04] VITALS: BP 130/68; PULSE 75; RESP 20
--- NOTE | 2024-12-01 09:06 | ED ---
Psych HPI - General Chief Complaint: Psychiatric Symptoms Stated Complaint: abd pain Time Seen by Provider: 12/01/24 07:05 Source: patient, EMS, RN notes reviewed Mode of arrival: EMS Limitations: no limitations - History of Present Illness Initial Comments: 24-year-old female presents emergency department stating that she is . Patient states she is having abdominal discomfort. Patient had negative test 5 weeks ago here but states that she was told several months ago she was . Patient states she is allergic to all medications and is not taking her psychiatric medications. Patient denies being suicidal homicidal. - Related Data Home Medications Medication Instructions Recorded Confirmed ARIPiprazole IM SYRINGE [Abilify 400 mg IM QMONTHLY 04/26/23 04/26/23 Maintena Syringe] Albuterol Sulfate [Albuterol 1 puff PO RT-Q4H PRN 04/26/23 02/04/24 Sulfate Hfa] Baclofen 10 mg PO BID PRN 04/26/23 02/04/24 Butalb/APAP/Caff 50-325-40Mg 1 tab PO BID PRN 04/26/23 02/04/24 [Fioricet 50-325-40] Ergocalciferol (Vitamin D2) 1,250 mcg PO Q7D 04/26/23 02/04/24 [Drisdol (50,000 Iu)] [place] Carbonate 600 mg PO HS 04/26/23 02/04/24 OLANZapine [ZyPREXA] 20 mg PO HS 04/26/23 04/26/23 Omeprazole [PriLOSEC] 20 mg PO DAILY 04/26/23 02/04/24 Previous Rx's Medication Instructions Recorded Divalproex ER [Depakote ER] 1,500 mg PO HS 30 Days #90 tab 08/28/22 FLUoxetine HCL [PROzac] 20 mg PO DAILY 30 Days #30 cap 08/28/22 OLANZapine [ZyPREXA] 5 mg PO DAILY 30 Days #30 tab 08/28/22 Prazosin [Minipress] 1 mg PO HS 30 Days #30 cap 08/28/22 Acetaminophen [Acetaminophen 8 hr] 650 mg PO Q8H PRN #21 tab 07/07/24 predniSONE 50 mg PO DAILY #5 tab 11/19/24 Allergies Allergy/AdvReac Type Severity Reaction Status Date / Time quetiapine [From Seroquel] Allergy Unknown Verified 12/01/24 07:05 Childhood Review of Systems ROS Statement: Those systems with pertinent positive or pertinent negative responses have been documented in the HPI. ROS Other: All systems not noted in ROS Statement are negative. Past Medical History Past Medical History: Asthma Additional Past Medical History / Comment(s): hypoglycemic, bipolar, adhd History of Any Multi-Drug Resistant Organisms: None Reported Past Surgical History: Ear Surgery, Orthopedic Surgery Additional Past Surgical History / Comment(s): eye surgery, foot surgery Past Psychological History: ADD/ADHD, Bipolar, PTSD Smoking Status: Vaper Past Alcohol Use History: None Reported Past Drug Use History: Marijuana - Past Family History familyi Family Medical History: Fibromyalgia, Osteoarthritis (OA) Additional Family Medical History / Comment(s): insomnia,, snoring, mental illness General Exam Limitations: no limitations General appearance: alert, in no apparent distress Head exam: Present: atraumatic, normocephalic, normal inspection Eye exam: Present: normal appearance, PERRL, EOMI. Absent: scleral icterus, conjunctival injection, periorbital swelling ENT exam: Present: normal exam, normal oropharynx, mucous membranes moist Neck exam: Present: normal inspection, full ROM. Absent: tenderness, meningismus, lymphadenopathy Respiratory exam: Present: normal lung sounds bilaterally. Absent: respiratory distress, wheezes, rales, rhonchi, stridor Cardiovascular Exam: Present: regular rate, normal rhythm, normal heart sounds. Absent: systolic murmur, diastolic murmur, rubs, gallop, clicks GI/Abdominal exam: Present: soft, normal bowel sounds. Absent: distended, tenderness, guarding, rebound, rigid Back exam: Absent: CVA tenderness (R), CVA tenderness (L) Neurological exam: Present: alert Course Vital Signs 12/01/24 12/01/24 07:01 09:02 Temperature 98.2 F Pulse Rate 88 75 Respiratory 18 20 Rate Blood Pressure 119/71 130/68 O2 Sat by Pulse 98 98 Oximetry Medical Decision Making - Medical Decision Making Was pt. sent in by a medical professional or institution (, PA, MANAGER OF CASE MANAGEMENT, urgent care, hospital, or [facility]...) When possible be specific @ -No Did you speak to anyone other than the patient for history (EMS, parent, family, police, friend...)? What history was obtained from this source @ -No Did you review nursing and triage notes (agree or disagree)? Why? @ -I reviewed and agree with nursing and triage notes Were old charts reviewed (outside hosp., previous admission, EMS record, old EKG, old radiological studies, urgent care reports/EKG's, [facility] records)? Report findings @ -No old charts were reviewed Differential Diagnosis (chest pain, altered mental status, abdominal pain women, abdominal pain men, vaginal bleeding, weakness, fever, dyspnea, syncope, headache, dizziness, GI bleed, back pain, seizure, CVA, palpatations, mental health, musculoskeletal)? @ -Differential Abdominal Pain Women: Appendicitis, Cholecystitis, diverticulosis, ischemic bowel, pancreatitis, hepatitis, UTI, gastroenteritis, AAA, incarcerated hernia, bowel obstruction, constipation, inflammatory bowel, hepatitis, peptic ulcer disease, splenic infarction, perforated viscus, vulvitis, ovarian torsion, PID, kidney stone, placenta abruption, this is not meant to be an all-inclusive list EKG interpreted by me (3pts min.). @ -None X-rays interpreted by me (1pt min.). @ -None done CT interpreted by me (1pt min.). @ -None done U/S interpreted by me (1pt. min.). @ -None done What testing was considered but not performed or refused? (CT, X-rays, U/S, labs)? Why? @ -None What meds were considered but not given or refused? Why? @ -None Did you discuss the management of the patient with other professionals (professionals i.e. , PA, MANAGER OF CASE MANAGEMENT, lab, RT, psych nurse, social staff worker, silo filler, teacher, custom protection officer, manager of case management)? Give summary @ -No Was smoking cessation discussed for >3mins.? @ -No Was critical care preformed (if so, how long)? @ -No Were there social determinants of health that impacted care today? How? (Homelessness, low income, unemployed, alcoholism, drug addiction, transportation, low edu. Level, literacy, decrease access to med. care, snf, rehab)? @ -No Was there de-escalation of care discussed even if they declined (Discuss DNR or withdrawal of care, Hospice)? DNR status @ -No What co-morbidities impacted this encounter? (DM, HTN, Smoking, COPD, CAD, Cancer, CVA, ARF, Chemo, Hep., AIDS, mental health diagnosis, sleep apnea, morbid obesity)? @ -None Was patient admitted / discharged? Hospital course, mention meds given and route, prescriptions, significant lab abnormalities, going to OR and other pertinent info. @ -[Patient left against medical vice prior to laboratory studies and needs psychiatric valuation Undiagnosed new problem with uncertain prognosis? @ -No Drug Therapy requiring intensive monitoring for toxicity (Heparin, Nitro, Insulin, Cardizem)? @ -No Were any procedures done? @ -No Diagnosis/symptom? @Abdominal pain, psychiatric history Acute, or Chronic, or Acute on Chronic? @ -Acute Uncomplicated (without systemic symptoms) or Complicated (systemic symptoms)? @ -Complicated Side effects of treatment? @ -No Exacerbation, Progression, or Severe Exacerbation? @ -No Poses a threat to life or bodily function? How? (Chest pain, USA, PA, pneumonia, PE, COPD, DKA, ARF, appy, cholecystitis, CVA, Diverticulitis, Homicidal, Suicidal, threat to staff... and all critical care pts) @ -No - Lab Data Lab Results 12/01/24 12/01/24 Range/Units 08:47 08:47 Urine Color Light Yellow Urine Appearance Clear (Clear) Urine pH 6.5 (5.0-8.0) Ur Specific [place] 1.012 (1.001-1.035) Urine Protein Negative (Negative) Urine Glucose (UA) Negative (Negative) Urine Ketones Negative (Negative) Urine Blood Negative (Negative) Urine Nitrite Negative (Negative) Urine Bilirubin Negative (Negative) Urine Urobilinogen <2.0 (<2.0) mg/dL Ur Leukocyte Esterase Negative (Negative) Urine HCG, Qual Not Detected (Not Detectd) Urine Opiates Screen Not Detected (NotDetected) Ur Oxycodone Screen Not Detected (NotDetected) Urine Methadone Screen Not Detected (NotDetected) Ur Barbiturates Screen Not Detected (NotDetected) U Tricyclic Antidepress Not Detected (NotDetected) Ur Phencyclidine Scrn Not Detected (NotDetected) Ur Amphetamines Screen Not Detected (NotDetected) U Methamphetamines Scrn Not Detected (NotDetected) U Benzodiazepines Scrn Not Detected (NotDetected) Urine Cocaine Screen Not Detected (NotDetected) U Marijuana (THC) Screen Not Detected (NotDetected) Disposition Clinical Impression: Acute psychosis, Abdominal pain Disposition: LEFT AGAINST MEDICAL ADVICE Referrals: None,Stated [Primary Care Provider] - 1-2 days Time of Disposition: 09:41
[2024-12-01 09:11] LABS: Appearance,Urine Clear (Clear); Bilirubin,Urine Negative (Negative); Blood,Urine Negative (Negative); Color,Urine Light Yellow; Glucose,Urine (UA) Negative (Negative); Ketones,Urine Negative (Negative); Leukocyte Esterase,Urine Negative (Negative); Nitrite,Urine Negative (Negative); PH, Urine 6.5 (5.0-8.0); Protein,Urine Negative (Negative); Specific Gravity,Urine 1.012 (1.001-1.035); Urobilinogen,Urine <2.0 mg/dL (<2.0)
[2024-12-01 09:22] LABS: Amphetamine Screen,Urine Not Detected (NotDetected); Barbiturate Screen,Urine Not Detected (NotDetected); Benzodiazepines Screen,Urine Not Detected (NotDetected); Cocaine Screen,Urine Not Detected (NotDetected); Methadone Screen, Urine Not Detected (NotDetected); Opiate Screen,Urine Not Detected (NotDetected); Oxycodone Screen, Urine Not Detected (NotDetected); Phencyclidine Screen,Urine Not Detected (NotDetected); Tricyclic Antidepressant,Urine Not Detected (NotDetected); Urn Cannabinoid Scrn Not Detected (NotDetected)
== END 2024-12-01 09:39 | disposition left against medical advice (07) ==
LOC: EC 07:00
DX: F23 Brief psychotic disorder (principal); R10.9 Unspecified abdominal pain; F17.290 Nicotine dependence, other tobacco product, uncomplicated; Z88.8 Allergy status to other drugs, medicaments and biological substances; Z53.29 Procedure and treatment not carried out because of patient's decision for other reasons
CPT/HCPCS: 80306; 81003; 81025; 99285

== ENCOUNTER 2025-01-24 04:05 | Emergency (ER) | payer OTHER ==
--- NOTE | 2025-01-24 04:26 | ED ---
General Adult HPI - General Source: patient, family, RN notes reviewed, old records reviewed Mode of arrival: wheelchair Limitations: altered mental status <Pancho Melgar - Last Filed: 01/24/25 06:55> <James Dowling - Last Filed: 01/24/25 08:20> - General Chief complaint: Abdominal Pain Stated complaint: abd pains Time Seen by Provider: 01/24/25 04:12 - History of Present Illness Initial comments: 25-year-old female who states she believes she is . States she has not had a normal period since June. Has noticed some possible clear vaginal discharge. States that she tested positive for last month. She has presented here for similar complaints in the past and most recent was in December 01 of this year which showed that the patient was not at that time. She thinks her water is breaking. Has no other acute complaints at this time. Presents for further evaluation. Denies constipation, diarrhea, nausea, vomiting, abdominal pain. (Pancho Melgar) - Related Data Home Medications Medication Instructions Recorded Confirmed ARIPiprazole IM SYRINGE [Abilify 400 mg IM QMONTHLY 04/26/23 04/26/23 Maintena Syringe] Albuterol Sulfate [Albuterol 1 puff PO RT-Q4H PRN 04/26/23 02/04/24 Sulfate Hfa] Baclofen 10 mg PO BID PRN 04/26/23 02/04/24 Butalb/APAP/Caff 50-325-40Mg 1 tab PO BID PRN 04/26/23 02/04/24 [Fioricet 50-325-40] Ergocalciferol (Vitamin D2) 1,250 mcg PO Q7D 04/26/23 02/04/24 [Drisdol (50,000 Iu)] Hamel Carbonate 600 mg PO HS 04/26/23 02/04/24 OLANZapine [ZyPREXA] 20 mg PO HS 04/26/23 04/26/23 Omeprazole [PriLOSEC] 20 mg PO DAILY 04/26/23 02/04/24 Previous Rx's Medication Instructions Recorded Divalproex ER [Depakote ER] 1,500 mg PO HS 30 Days #90 tab 08/28/22 FLUoxetine HCL [PROzac] 20 mg PO DAILY 30 Days #30 cap 08/28/22 OLANZapine [ZyPREXA] 5 mg PO DAILY 30 Days #30 tab 08/28/22 Prazosin [Minipress] 1 mg PO HS 30 Days #30 cap 08/28/22 Acetaminophen [Acetaminophen 8 hr] 650 mg PO Q8H PRN #21 tab 07/07/24 predniSONE 50 mg PO DAILY #5 tab 11/19/24 Allergies Allergy/AdvReac Type Severity Reaction Status Date / Time quetiapine [From Seroquel] Allergy Unknown Verified 01/24/25 04:13 Childhood Review of Systems ROS Other: All systems not noted in ROS Statement are negative. <Pancho Melgar - Last Filed: 01/24/25 06:55> ROS Other: All systems not noted in ROS Statement are negative. <James Dowling - Last Filed: 01/24/25 08:20> ROS Statement: Those systems with pertinent positive or pertinent negative responses have been documented in the HPI. Review of Systems: CONST: Denies fever EYES: Denies blurry vision ENT: Denies nasal congestion C/V: Denies Chest pain RESP: Denies shortness of breath GI: Denies abdominal pain : Denies dysuria SKIN: Denies rash. MSK: Denies joint pain. NEURO: Denies headache (Pancho Melgar) Past Medical History Past Medical History: Asthma Additional Past Medical History / Comment(s): hypoglycemic, bipolar, adhd History of Any Multi-Drug Resistant Organisms: None Reported Past Surgical History: Ear Surgery, Orthopedic Surgery Additional Past Surgical History / Comment(s): eye surgery, foot surgery Past Psychological History: ADD/ADHD, Bipolar, Depression, Panic Disorder, PTSD Smoking Status: Vaper Past Alcohol Use History: None Reported Past Drug Use History: Marijuana - Past Family History familyi Family Medical History: Fibromyalgia, Osteoarthritis (OA) Additional Family Medical History / Comment(s): insomnia,, snoring, mental illness <Pancho Melgar - Last Filed: 01/24/25 06:55> General Exam Limitations: altered mental status <Pancho Melgar - Last Filed: 01/24/25 06:55> - General Exam Comments Initial Comments: General: Appears in no acute distress. HEAD: Normal with no signs of head trauma. EYES: EOMI ENT: Hearing grossly intact RESPIRATORY: Clear breath sounds bilaterally. No wheezes, rales, or rhonchi. C/V: Regular rate and rhythm. S1 and S2 auscultated, no edema, peripheral pulses 2+ and intact throughout ABD: Abd is soft, nontender, nondistended EXT: No obvious deformity SKIN: No rashes or lesions observed on exposed skin. NEURO: Alert and oriented x 4. (Pancho Melgar) Course Vital Signs 01/24/25 01/24/25 04:07 06:35 Temperature 97.9 F 98.1 F Pulse Rate 72 67 Respiratory 16 18 Rate Blood Pressure 108/70 103/65 O2 Sat by Pulse 95 99 Oximetry Medical Decision Making - Lab Data Result diagrams: 01/24/25 06:01 01/24/25 06:01 <Pancho Melgar - Last Filed: 01/24/25 06:55> - Lab Data Result diagrams: 01/24/25 06:01 01/24/25 06:01 <James Dowling - Last Filed: 01/24/25 08:20> - Medical Decision Making Was pt. sent in by a medical professional or institution (Dr. PA, TAX ACCOUNTANT, urgent care, hospital, or long term...) When possible be specific @ -No Did you speak to anyone other than the patient for history (EMS, parent, family, police, friend...)? What history was obtained from this source @ -No Did you review nursing and triage notes (agree or disagree)? Why? @ -I reviewed and agree with nursing and triage notes Were old charts reviewed (outside hosp., previous admission, EMS record, old EKG, old radiological studies, urgent care reports/EKG's, long term records)? Report findings @ -Reviewed chart from November 2024 which showed patient tested negative for . Differential Diagnosis (chest pain, altered mental status, abdominal pain women, abdominal pain men, vaginal bleeding, weakness, fever, dyspnea, syncope, hea dache, dizziness, GI bleed, back pain, seizure, CVA, palpatations, mental health, musculoskeletal)? @ -, UTI, cystitis. This list is not all-inclusive. EKG interpreted by me (3pts min.). @ -None done X-rays interpreted by me (1pt min.). @ -None done CT interpreted by me (1pt min.). @ -None done U/S interpreted by me (1pt. min.). @ -pending What testing was considered but not performed or refused? (CT, X-rays, U/S, labs)? Why? @ -None What meds were considered but not given or refused? Why? @ -None Did you discuss the management of the patient with other professionals (leroy jimenez i.e. , PA, TAX ACCOUNTANT, lab, RT, psych nurse, hospital social worker, cribbing setter, teacher, school resource officer, piano case and bench assembler)? Give summary @ -No Was smoking cessation discussed for >3mins.? @ -No Was critical care preformed (if so, how long)? @ -No Were there social determinants of health that impacted care today? How? (Homelessness, low income, unemployed, alcoholism, drug addiction, transportation, low edu. Level, literacy, decrease access to med. care, long term, rehab)? @ -No Was there de-escalation of care discussed even if they declined (Discuss DNR or withdrawal of care, Hospice)? DNR status @ -No What co-morbidities impacted this encounter? (DM, HTN, Smoking, COPD, CAD, Cancer, CVA, ARF, Chemo, Hep., AIDS, mental health diagnosis, sleep apnea, morbid obesity)? @ -None Was patient admitted / discharged? Hospital course, mention meds given and route, prescriptions, significant lab abnormalities, going to OR and other pertinent info. @ -Patient presents thinking she may be however we have a recent urine test from November showing she is not . States she is and 9 months at this point. I discussed with her the fact that this is unlikely but we will obtain urinalysis as well as urine test. Patient was in agreement this plan. Vital signs are within acceptable limits. Urinalysis did return positive for . I updated the patient we will obt ain basic labs. I did state that I do not believe she is 9 months if she does have a negative test from November 2024 and she expressed understanding. We may order ultrasound however prior to ordering we will obtain quantitative beta-hCG. She was in agreement this plan. At this time is the end of my shift. Patient pending ultrasound as well as quantitative beta-hCG. Signed out to oncoming emergency department physician Dr. Dowling. Undiagnosed new problem with uncertain prognosis? @ -No Drug Therapy requiring intensive monitoring for toxicity (Heparin, Nitro, Insulin, Cardizem)? @ -No Were any procedures done? @ -No (Pancho Melgar) U/S interpreted by me (1pt. min.). @ -Ultrasound showed a viable 7-week with a possible small subchor ionic bleed Was patient admitted / discharged? Hospital course, mention meds given and route, prescriptions, significant lab abnormalities, going to OR and other pertinent info. @ -Patient is 7 weeks patient will need to follow-up with [facility] nursing will attempt to contact the guardian and let her or him know about the patient's condition Undiagnosed new problem with uncertain prognosis? @ -No Drug Therapy requiring intensive monitoring for toxicity (Heparin, Nitro, Insulin, Cardizem)? @ -No Were any procedures done? @ -No Diagnosis/symptom? @ - intrauterine Acute, or Chronic, or Acute on Chronic? @ -Acute Uncomplicated (without systemic symptoms) or Complicated (systemic symptoms)? @ -Uncomplicated Side effects of treatment? @ -No Exacerbation, Progression, or Severe Exacerbation? @ -No Poses a threat to life or bodily function? How? (Chest pain, USA, MT, pneumonia, PE, COPD, DKA, ARF, appy, cholecystitis, CVA, Diverticulitis, Homicidal, Suicidal, threat to staff... and all critical care pts) @ -No (James Dowling) - Lab Data Lab Results 01/24/25 01/24/25 01/24/25 Range/Units 05:01 05:01 06:01 WBC 12.28 H (4.50-10.00) 10*3/uL RBC 4.00 L (4.10-5.20) 10*6/uL Hgb 13.0 (12.0-15.0) g/dL Hct 36.9 L (37.2-46.3) % MCV 92.3 (80.0-97.0) fL MCH 32.5 H (27.0-32.0) pg MCHC 35.2 (32.0-37.0) g/dL Plt Count 266 (140-440) 10*3/uL MPV 9.6 (9.5-12.2) fL Immature Gran % (Auto) 0.2 % Neutrophils % 71.7 % Lymphocytes % 17.6 % Monocytes % 7.8 % Eosinophils % 2.2 % Basophils % 0.5 % Immature Gran # 0.02 (0.00-0.04) 10*3/uL Neutrophils # 8.81 H (1.80-7.70) 10*3/uL Lymphocytes # 2.16 (0.90-5.00) 10*3/uL Monocytes # 0.96 (0.20-1.00) 10*3/uL Eosinophils # 0.27 (0.04-0.35) 10*3/uL Basophils # 0.06 (0.00-0.10) 10*3/uL PT (10.0-12.5) sec INR (<1.2) APTT (22.0-30.0) sec Sodium (137-145) mmol/L Potassium (3.5-5.1) mmol/L Chloride (98-107) mmol/L Carbon Dioxide (22-30) mmol/L Anion Gap mmol/L BUN (7-17) mg/dL Creatinine (0.52-1.04) mg/dL Est GFR (CKD-EPI)AfAm (>60 ml/min/1.73 sqM) Est GFR (CKD-EPI)NonAf (>60 ml/min/1.73 sqM) Glucose (74-99) mg/dL Calcium (8.4-10.2) mg/dL Total Bilirubin (0.2-1.3) mg/dL AST (14-36) U/L ALT (4-34) U/L Alkaline Phosphatase (38-126) U/L Total Protein (6.3-8.2) g/dL Albumin (3.5-5.0) g/dL HCG, Quant mIU/mL Urine Color Colorless Urine Appearance Clear (Clear) Urine pH 7.0 (5.0-8.0) Ur Specific [place] 1.024 (1.001-1.035) Urine Protein Negative (Negative) Urine Glucose (UA) Negative (Negative) Urine Ketones Negative (Negative) Urine Blood Trace H (Negative) Urine Nitrite Negative (Negative) Urine Bilirubin Negative (Negative) Urine Urobilinogen 3.0 (<2.0) mg/dL Ur Leukocyte Esterase Moderate H (Negative) Urine RBC 2 (0-5) /hpf Urine WBC 15 H (0-5) /hpf Ur Squamous Epith Cells <1 (0-4) /hpf Urine Yeast (Budding) Occasional H (None) /hpf Urine HCG, Qual Detected (Not Detectd) Urine Opiates Screen Not Detected (NotDetected) Ur Oxycodone Screen Not Detected (NotDetected) Urine Methadone Screen Not Detected (NotDetected) Ur Barbiturates Screen Not Detected (NotDetected) U Tricyclic Antidepress Not Detected (NotDetected) Ur Phencyclidine Scrn Not Detected (NotDetected) Ur Amphetamines Screen Not Detected (NotDetected) U Methamphetamines Scrn Not Detected (NotDetected) U Benzodiazepines Scrn Detected H (NotDetected) Urine Cocaine Screen Not Detected (NotDetected) U Marijuana (THC) Screen Not Detected (NotDetected) Blood Type Blood Type Confirm Blood Type Recheck Bld Type Recheck Status Antibody Screen Spec Expiration Date 01/24/25 01/24/25 01/24/25 Range/Units 06:01 06:01 06:01 WBC (4.50-10.00) 10*3/uL RBC (4.10-5.20) 10*6/uL Hgb (12.0-15.0) g/dL Hct (37.2-46.3) % MCV (80.0-97.0) fL MCH (27.0-32.0) pg MCHC (32.0-37.0) g/dL Plt Count (140-440) 10*3/uL MPV (9.5-12.2) fL Immature Gran % (Auto) % Neutrophils % % Lymphocytes % % Monocytes % % Eosinophils % % Basophils % % Immature Gran # (0.00-0.04) 10*3/uL Neutrophils # (1.80-7.70) 10*3/uL Lymphocytes # (0.90-5.00) 10*3/uL Monocytes # (0.20-1.00) 10*3/uL Eosinophils # (0.04-0.35) 10*3/uL Basophils # (0.00-0.10) 10*3/uL PT 10.8 (10.0-12.5) sec INR 1.0 (<1.2) APTT 23.8 (22.0-30.0) sec Sodium 139 (137-145) mmol/L Potassium 4.0 (3.5-5.1) mmol/L Chloride 107 (98-107) mmol/L Carbon Dioxide 22 (22-30) mmol/L Anion Gap 10 mmol/L BUN 12 (7-17) mg/dL Creatinine 0.49 L (0.52-1.04) mg/dL Est GFR (CKD-EPI)AfAm >90 (>60 ml/min/1.73 sqM) Est GFR (CKD-EPI)NonAf >90 (>60 ml/min/1.73 sqM) Glucose 81 (74-99) mg/dL Calcium 9.5 (8.4-10.2) mg/dL Total Bilirubin 0.6 (0.2-1.3) mg/dL AST 14 (14-36) U/L ALT 13 (4-34) U/L Alkaline Phosphatase 59 (38-126) U/L Total Protein 6.5 (6.3-8.2) g/dL Albumin 4.1 (3.5-5.0) g/dL HCG, Quant 89534.7 mIU/mL Urine Color Urine Appearance (Clear) Urine pH (5.0-8.0) Ur Specific [place] (1.001-1.035) Urine Protein (Negative) Urine Glucose (UA) (Negative) Urine Ketones (Negative) Urine Blood (Negative) Urine Nitrite (Negative) Urine Bilirubin (Negative) Urine Urobilinogen (<2.0) mg/dL Ur Leukocyte Esterase (Negative) Urine RBC (0-5) /hpf Urine WBC (0-5) /hpf Ur Squamous Epith Cells (0-4) /hpf Urine Yeast (Budding) (None) /hpf Urine HCG, Qual (Not Detectd) Urine Opiates Screen (NotDetected) Ur Oxycodone Screen (NotDetected) Urine Methadone Screen (NotDetected) Ur Barbiturates Screen (NotDetected) U Tricyclic Antidepress (NotDetected) Ur Phencyclidine Scrn (NotDetected) Ur Amphetamines Screen (NotDetected) U Methamphetamines Scrn (NotDetected) U Benzodiazepines Scrn (NotDetected) Urine Cocaine Screen (NotDetected) U Marijuana (THC) Screen (NotDetected) Blood Type B Positive Blood Type Confirm Blood Type Recheck No Previous Record Bld Type Recheck Status CABO Indicated Antibody Screen NEGATIVE Spec Expiration Date 01/27/2025 - 230001/24/25 Range/Units 06:01 WBC (4.50-10.00) 10*3/uL RBC (4.10-5.20) 10*6/uL Hgb (12.0-15.0) g/dL Hct (37.2-46.3) % MCV (80.0-97.0) fL MCH (27.0-32.0) pg MCHC (32.0-37.0) g/dL Plt Count (140-440) 10*3/uL MPV (9.5-12.2) fL Immature Gran % (Auto) % Neutrophils % % Lymphocytes % % Monocytes % % Eosinophils % % Basophils % % Immature Gran # (0.00-0.04) 10*3/uL Neutrophils # (1.80-7.70) 10*3/uL Lymphocytes # (0.90-5.00) 10*3/uL Monocytes # (0.20-1.00) 10*3/uL Eosinophils # (0.04-0.35) 10*3/uL Basophils # (0.00-0.10) 10*3/uL PT (10.0-12.5) sec INR (<1.2) APTT (22.0-30.0) sec Sodium (137-145) mmol/L Potassium (3.5-5.1) mmol/L Chloride (98-107) mmol/L Carbon Dioxide (22-30) mmol/L Anion Gap mmol/L BUN (7-17) mg/dL Creatinine (0.52-1.04) mg/dL Est GFR (CKD-EPI)AfAm (>60 ml/min/1.73 sqM) Est GFR (CKD-EPI)NonAf (>60 ml/min/1.73 sqM) Glucose (74-99) mg/dL Calcium (8.4-10.2) mg/dL Total Bilirubin (0.2-1.3) mg/dL AST (14-36) U/L ALT (4-34) U/L Alkaline Phosphatase (38-126) U/L Total Protein (6.3-8.2) g/dL Albumin (3.5-5.0) g/dL HCG, Quant mIU/mL Urine Color Urine Appearance (Clear) Urine pH (5.0-8.0) Ur Specific [place] (1.001-1.035) Urine Protein (Negative) Urine Glucose (UA) (Negative) Urine Ketones (Negative) Urine Blood (Negative) Urine Nitrite (Negative) Urine Bilirubin (Negative) Urine Urobilinogen (<2.0) mg/dL Ur Leukocyte Esterase (Negative) Urine RBC (0-5) /hpf Urine WBC (0-5) /hpf Ur Squamous Epith Cells (0-4) /hpf Urine Yeast (Budding) (None) /hpf Urine HCG, Qual (Not Detectd) Urine Opiates Screen (NotDetected) Ur Oxycodone Screen (NotDetected) Urine Methadone Screen (NotDetected) Ur Barbiturates Screen (NotDetected) U Tricyclic Antidepress (NotDetected) Ur Phencyclidine Scrn (NotDetected) Ur Amphetamines Screen (NotDetected) U Methamphetamines Scrn (NotDetected) U Benzodiazepines Scrn (NotDetected) Urine Cocaine Screen (NotDetected) U Marijuana (THC) Screen (NotDetected) Blood Type Blood Type Confirm B Positive Blood Type Recheck Bld Type Recheck Status Antibody Screen Spec Expiration Date Disposition <Pancho Melgar - Last Filed: 01/24/25 06:55> Is patient prescribed a controlled substance at d/c from ED?: No Time of Disposition: 08:19 <James Dowling - Last Filed: 01/24/25 08:20> Clinical Impression: Disposition: HOME SELF-CARE Condition: Good Additional Instructions: Patient should follow-up with [facility] Referrals: Melly Pickett MD [STAFF PHYSICIAN] - 1-2 days
[2025-01-24 05:40] LABS: Bilirubin,Urine Negative (Negative); Blood,Urine Trace (Negative); Budding Yeast,Urine Occasional /hpf; Color,Urine Colorless; Glucose,Urine (UA) Negative (Negative); Ketones,Urine Negative (Negative); Leukocyte Esterase,Urine Moderate (Negative); Nitrite,Urine Negative (Negative); PH, Urine 7.0 (5.0-8.0); Protein,Urine Negative (Negative); RBC,Urine 2 /hpf (0-5); Specific Gravity,Urine 1.024 (1.001-1.035); Squamous Epithelial Cell,Urine <1 /hpf (0-4); Urobilinogen,Urine 3.0 mg/dL (<2.0); WBC,Urine 15 /hpf (0-5)
[2025-01-24 05:43] LABS: Barbiturate Screen,Urine Not Detected (NotDetected); Benzodiazepines Screen,Urine Detected (NotDetected); Opiate Screen,Urine Not Detected (NotDetected); Oxycodone Screen, Urine Not Detected (NotDetected); Phencyclidine Screen,Urine Not Detected (NotDetected); Tricyclic Antidepressant,Urine Not Detected (NotDetected); Urn Cannabinoid Scrn Not Detected (NotDetected)
[2025-01-24 06:17] LABS: Basophils # (A) 0.06 10*3/uL (0.00-0.10); Basophils % (A) 0.5 %; Eosinophils # (A) 0.27 10*3/uL (0.04-0.35); Eosinophils % (A) 2.2 %; HCT 36.9 % (37.2-46.3); HGB 13.0 g/dL (12.0-15.0); Lymphocytes # (A) 2.16 10*3/uL (0.90-5.00); Lymphocytes % (A) 17.6 %; MCH 32.5 pg (27.0-32.0); MCHC 35.2 g/dL (32.0-37.0); MCV 92.3 fL (80.0-97.0); Monocytes # (A) 0.96 10*3/uL (0.20-1.00); Monocytes % (A) 7.8 %; Neutrophils # (A) 8.81 10*3/uL (1.80-7.70); Neutrophils % (A) 71.7 %; Platelet Count 266 10*3/uL (140-440); RBC 4.00 10*6/uL (4.10-5.20); RDW 11.9 % (11.5-14.5); WBC 12.28 10*3/uL (4.50-10.00)
[2025-01-24 06:29] LABS: ALT 13 U/L (4-34); AST 14 U/L (14-36); African American GFR (CKD) >90 (>60 ml/min/1.73 sqM); Albumin 4.1 g/dL (3.5-5.0); Alkaline Phosphatase 59 U/L (38-126); Anion Gap 10 mmol/L; Blood Urea Nitrogen 12 mg/dL (7-17); Calcium 9.5 mg/dL (8.4-10.2); Carbon Dioxide 22 mmol/L (22-30); Chloride 107 mmol/L (98-107); Glucose 81 mg/dL (74-99); Non-African American GFR(CKD) >90 (>60 ml/min/1.73 sqM); Potassium 4.0 mmol/L (3.5-5.1); Sodium 139 mmol/L (137-145); Total Protein 6.5 g/dL (6.3-8.2)
[2025-01-24 06:36] VITALS: RESP 18
[2025-01-24 06:37] LABS: INR 1.0 (<1.2); Partial Thromboplastin Time 23.8 sec (22.0-30.0); Prothrombin Time 10.8 sec (10.0-12.5)
[2025-01-24 07:15] LABS: HCG,Quantitative Serum 46711.7 mIU/mL
--- NOTE | 2025-01-24 08:09 | US ---
EXAMINATION TYPE: Transabdominal DATE OF EXAM: 01/24/2025 7:32 AM COMPARISON: NONE CLINICAL INDICATION: Female, 25 years old with history of early , abd cramping; Hx 1 C secti on. Patient is unsure how many pregnancies she has had, but has had multiple. Limited history from [facility]. Patient states she had a hx of placental abruption. G? P2 TECHNIQUE: Transabdominal (TA) with grayscale and color Doppler imaging including first trimester pre gnancy. FINDINGS: EXAM MEASUREMENTS: GESTATIONAL AGE / DATING Physician Established: Not yet established Dates by LMP: Patient unsure, she thinks her LMP was June 26 30 weeks/2 days EDC: 04/02/2025 Dates by First Scan: This is first scan Dates by Current Scan for: (7 weeks/1 day) EDC: 09/11/2025 MATERNAL ANATOMY Uterus: 11.0 x 5.9 x 3.5 cm. Right Ovary: 3.4 x 1.8 x 1.9 cm. Left Ovary: 2.8 x 1.5 x 1.6 cm. Post CDS / Adnexa: Appear wnl Presence of free fluid: None seen Presence of corpus luteal cyst: Not seen Presence of subchorionic bleed: *Complex area seen adjacent/inferior to gestational sac: 1.4 x 2.0 x 0.9 cm. GESTATION / SURVEY CRL: 9.98 mm (7 weeks/1 day) Gestational Sac morphology: Appears wnl Yolk Sac (normal less than 6mm): 2.4 mm Cardiac Activity/Heart Rate: 142 bpm Rhythm: Normal IUP: Viable IUP Date of LMP: Pt unsure, she thinks her LMP was June 26, 2024 Beta HcG (if available): Detected IMPRESSION: 1. Single viable intrauterine of approximately 7 weeks and 1 day. 2. 1.5 cm complex area adjacent to the gestational sac raising the possibility of a small subchorioni c bleed. [facility], , 01/24/2025 8:07 AM
[2025-01-24 08:58] VITALS: BP 99/65; PULSE 71; TEMP 98
== END 2025-01-24 09:06 | disposition home or self-care (01) ==
LOC: EC 04:05
DX: O26.91 Pregnancy related conditions, unspecified, first trimester (principal); O99.331 Smoking (tobacco) complicating pregnancy, first trimester; F17.290 Nicotine dependence, other tobacco product, uncomplicated; Z88.8 Allergy status to other drugs, medicaments and biological substances; Z3A.01 Less than 8 weeks gestation of pregnancy
CPT/HCPCS: 36415; 76801; 80053; 80306; 81001; 81025; 84702; 85025; 85610; 85730; 86850; 86900; 86901; 99284